=== PATIENT | male | born 1945 | race Caucasian/White ===

== ENCOUNTER 2023-09-16 13:08 | Emergency (ER) | payer MEDICARE, OTHER, SELFPAY ==
[2023-09-16 13:18] VITALS: BP 152/88; PULSE 70; TEMP 36.9; O2SAT 98; BMI 20.3
--- NOTE | 2023-09-16 13:32 | PC.NURSE ---
bumps to various areas to upper face. bumps are red in color and no drainage. pt denies these itching. reports them to hurt
--- NOTE | 2023-09-16 13:50 | ED_ITS ---
HPI - Skin/Abscess/Foreign Bdy General Chief complaint: Skin/Abscess/Foreign Body Stated complaint: FACIAL SWELLING Time Seen by Provider: 09/16/23 13:44 History of Present Illness HPI narrative: This patient is here with redness swelling and discomfort over the forehead nasal area medial canthus of his left eye and a little bit underneath his right eye as well. He does not know for sure but he thinks there might be some black ants in his house. He does not have any of these lesions on his arms chest abdomen or lower extremities. They itch they burn but they hurt a little bit when he touches the area. He has not had fever shakes or chills. Does not have any Neck or chest pain, no shortness of breath no other systemic symptoms. He is not a diabetic he is pretty healthy. He does not have a local doctor that he is seeing but he does have a doctor office in [place]. No severe headache. Does not have a history of MRSA. Does not have any lesions in his mouth or oral cavity. Related Data Home Medications ?Medication ?Instructions ?Recorded ?Confirmed No Known Home Medications 09/16/23 09/16/23 Allergies Allergy/AdvReac Type Severity Reaction Status Date / Time Penicillins Allergy Severe Verified 09/16/23 13:24 Exam Narrative Exam Narrative: Well-nourished very pleasant gentleman here with vital signs as noted slight elevation of his blood pressure. He is awake alert Elfrida x 3 normal cognition and mental status does not appear ill. Examining his facial area he does have slightly raised erythematous slightly tender areas in the forehead area the glabella is slightly tender to palpation with no purulent drainage or discharge. There is no vesicles. There is no gold crusty type lesions in the nasal area. He has lesions just underneath the right eye so I do not believe were dealing with shingles. The very eye examination is normal with no conjunctivitis. Extraocular muscles are normal. He has no light sensitivity and I do not believe he has any type of herpetic or viral infection of his eye. Constitutional Vital Signs, click to edit/add: Last Vital Signs Temp 98.5 F 09/16/23 13:18 Pulse 70 09/16/23 13:18 Resp 18 09/16/23 13:18 BP 152/88 H 09/16/23 13:18 Pulse Ox 98 09/16/23 13:18 O2 Del Method Room Air 09/16/23 13:18 Course Vital Signs Vital signs: Vital Signs Temperature 98.5 F 09/16/23 13:18 Pulse Rate 70 09/16/23 13:18 Respiratory Rate 18 09/16/23 13:18 Blood Pressure 152/88 H 09/16/23 13:18 Pulse Oximetry 98 09/16/23 13:18 Oxygen Delivery Method Room Air 09/16/23 13:18 Temperature 98.5 F 09/16/23 13:18 Pulse Rate 70 09/16/23 13:18 Respiratory Rate 18 09/16/23 13:18 Blood Pressure 152/88 H 09/16/23 13:18 Pulse Oximetry 98 09/16/23 13:18 Oxygen Delivery Method Room Air 09/16/23 13:18 MDM - Skin/Abscess/Foreign Bdy MDM Narrative Medical decision making narrative: Patient was several areas that are somewhat confluent in the forehead and nasal area near the medial canthus. Symptoms are most consistent with insect envenomation with possible secondary infection from itching these areas. This is not viral in etiology. He states he has possible allergies to penicillin. States he had a minor rash to penicillin when he was a child he is otherwise healthy. Discharge Plan Discharge Stand Alone Forms: Portal Instructions Chief Complaint: Skin/Abscess/Foreign Body Clinical Impression: Infection, face Patient Disposition: Home, Self-Care Time of Disposition Decision: 13:54 Prescriptions / Home Meds: No Action No Known Home Medications Print Language: Telugu Additional Instructions: Apply cold compresses with Epsom salt for symptomatic relief. Keflex for 7 days
== END 2023-09-16 14:31 | disposition home or self-care (01) ==
PROVIDERS: Emergency Provider Emergency Medicine Emergency Medical Services; PCP Family Medicine
DX: B99.9 Unspecified infectious disease (principal)
CPT/HCPCS: 99283

== ENCOUNTER 2024-01-16 11:13 | Emergency (ER) | payer MEDICARE, OTHER, SELFPAY ==
[2024-01-16 11:19] VITALS: BP 169/83; PULSE 72; TEMP 36.7; O2SAT 97; BMI 19.0
--- NOTE | 2024-01-16 11:44 | CT_ITS ---
[address] [address] Patient Name: SKYLER LYNN MRN: [id number] date: 1945 Sex: M Assigned Patient Location: ER Current Patient Location: Accession/Order Number: [id number] Exam Date: 01/16/2024 12:40 Report Date: 01/16/2024 13:17 At the request of: DORA MCKEON Procedure: CT abdomen pelvis w con EXAMINATION: CT abdomen pelvis w con HISTORY: constipation COMPARISON: No relevant comparison available. TECHNIQUE: Axial, Coronal, and Sagittal images were obtained without and/or with IV contrast as indicated by examination type. Dose reduction techniques were achieved by using automated exposure control and/or adjustment of mA and/or kV according to patient size and/or use of iterative reconstruction technique. FINDINGS: LUNG BASES: No visible pulmonary or pleural disease. LIVER: Multiple benign-appearing cysts within the liver. No enlargement, atrophy, suspicious density, or significant focal lesion. BILIARY: No dilatation or calcification. PANCREAS: No lesion, fluid collection, or abnormal duct dilatation. SPLEEN: No enlargement or focal lesion. ADRENALS: No mass or enlargement. KIDNEYS: A few tiny benign-appearing cysts bilaterally. Cortical calcification within left kidney suggestive of scarring. No appreciable mass or urinary tract calculi. BOWEL/MESENTERY: Large amount of stool throughout colon, greatest within the cecum and rectum. 7.2 cm diameter dense stool ball within rectal vault. No visible mass, obstruction, or bowel wall thickening. AORTA/VASCULAR: No aneurysm or dissection. RETROPERITONEUM: No mass or adenopathy. LYMPH NODES: No adenopathy. URINARY BLADDER: Markedly enlarged and extending well above the umbilicus, 22 x 16 x 11 cm in size. No appreciable stones or mass. PELVIC ORGANS: Moderately prominent prostate, 5.0 x 4.5 x 3.0 cm. ABDOMINAL WALL: No mass or hernia. BONES: Moderate to marked degenerative disc disease L3-4 and L4-5. No bony lesion or fracture. OTHER: Negative. CT/CT abdomen pelvis w con IMPRESSION: 1. Large amount of stool throughout the colon with a large 7.2 cm stool ball within rectal vault. 2. Markedly distended urinary bladder; 22 x 16 x 11 cm in size. No appreciable mass or stones. 3. Moderately prominent prostate which may be contributing to urinary retention. Electronically authenticated by: RANDEE HUNT Date: 01/16/2024 13:17
[2024-01-16 12:09] LABS: Basophils Percent Auto 0.3 % (0.2-2.0); Eosinophils Absolute Auto 0.1 10^3/uL (0.0-0.7); Eosinophils Percent Auto 1.5 % (0.9-7.0); Hematocrit 42.7 % (42.0-54.0); Hemoglobin 14.6 g/dL (14.0-18.0); Immature Granulocytes Abs Auto 0.01 10^3/uL (0.00-0.03); Immature Granulocytes Pct Auto 0.1 % (0.0-0.5); Lymphocytes Absolute Auto 1.6 10^3/uL (1.2-3.8); Lymphocytes Percent Auto 21.2 % (20.5-60.0); Mean Corpuscular HGB Conc 34.2 g/dL (29.9-35.2); Mean Corpuscular Hemoglobin 34.6 pg (25.9-34.0); Mean Corpuscular Volume 101.2 fL (80.0-94.0); Mean Platelet Volume 9.6 fL (9.5-13.5); Monocytes Absolute Auto 0.9 10^3/uL (0.3-0.8); Monocytes Percent Auto 11.5 % (1.7-12.0); Neutrophils Absolute Auto 4.9 10^3/uL (1.4-6.5); Neutrophils Percent Auto 65.4 % (43.0-75.0); Platelet Count 204 10^3/uL (150-450); Red Blood Count 4.22 10^6/uL (4.70-6.10); Red Cell Distribution Width 12.8 % (11.0-15.0); White Blood Count 7.4 10^3/uL (4.0-11.0)
[2024-01-16 12:31] LABS: Alanine Aminotransferase 22 U/L (16-63); Albumin Level 3.3 g/dL (3.4-5.0); Alkaline Phosphatase 79 U/L (46-116); Aspartate Amino Transferase 14 U/L (15-37); Bilirubin Total 0.6 mg/dL (0.2-1.0); Calcium 8.8 mg/dL (8.5-10.1); Carbon Dioxide 29.2 mmol/L (21.0-32.0); Chloride 104 mmol/L (98-107); Estimated GFR (African America >60 (>=60 mL/min/1.73m^2); Estimated GFR (Non-African Ame >60 (>=60 mL/min/1.73m^2); Globulin 3.4 g/dL; Glucose 105 mg/dL (74-106); Potassium 4.2 mmol/L (3.5-5.1); Sodium 140 mmol/L (136-145); Total Protein 6.7 g/dL (6.4-8.2)
[2024-01-16 14:35] LABS: Bilirubin Urine NEGATIVE (NEGATIVE); Blood Urine NEGATIVE (NEGATIVE); Clarity Urine CLEAR (CLEAR); Color Urine LT. YELLOW (YELLOW); Glucose Urine UA NEGATIVE (NEGATIVE); Ketones Urine NEGATIVE (NEGATIVE); Leukocyte Esterase Urine NEGATIVE (NEGATIVE); Nitrite Urine NEGATIVE (NEGATIVE); Protein Urine NEGATIVE (NEG/TRACE); Specific Gravity Urine 1.015 (1.005-1.025); Urobilinogen Urine 0.2 EU/dL (0.2-1.0)
[2024-01-16 14:36] LABS: Urine Microscopic Indicated NO
--- NOTE | 2024-01-16 15:11 | ED.GENADUL1 ---
HPI HPI - General Adult General Chief complaint: Abdominal Pain Stated complaint: BOWEL PROBLEMS Time Seen by Provider: 01/16/24 11:27 Source: patient Mode of arrival: walk-in Limitations: no limitations History of Present Illness HPI narrative: Patient presents to ED complaining of constipation. He said he has not had a bowel movement in at least 5 days but it may have been longer. He said he is getting some leaky stool but nothing substantial. He denies any vomiting. Denies any history of bowel surgeries or history of constipation in the past. He said he is just been having trouble trying to go. He reports normal urination. No fevers. Patient denies any flank pain or back pain. He denies any medicine use and states this does not really happen to him before. Related Data Home Medications ?Medication ?Instructions ?Recorded ?Confirmed No Known Home Medications 09/16/23 01/16/24 Allergies Allergy/AdvReac Type Severity Reaction Status Date / Time Penicillins Allergy Severe Rash Verified 01/16/24 11:19 Opioid HPI Opioid Management Most Recent Opioid Data: No Data to Display Review of Systems ROS Status of ROS 10 or more systems reviewed and unremarkable except as noted in history and below PFSH PFSH Social History Little interest or pleasure in doing things: not at all Feeling down, depressed, or hopeless: not at all Exam Narrative Exam Narrative: General: alert, no acute distress Cardiovascular: regular rate and rhythm, normal peripheral perfusion. Respiratory: Lungs CTA, respirations non labored. Extremities: no deformity, no trauma. Neurological: oriented x 4, LOC appropriate for age. Abdomen soft, mildly distended in the lower abdomen. No peritoneal signs no rebound no guarding. Rectal exam reveals impacted stool in the rectal vault Constitutional Vital Signs, click to edit/add: Last Vital Signs Temp 98.1 F 01/16/24 11:19 Pulse 72 01/16/24 11:19 Resp 18 01/16/24 11:19 BP 169/83 H 01/16/24 11:19 Pulse Ox 97 01/16/24 11:19 O2 Del Method Room Air 01/16/24 11:19 Course Vital Signs Vital signs: Vital Signs Temperature 98.1 F 01/16/24 11:19 Pulse Rate 72 01/16/24 11:19 Respiratory Rate 18 01/16/24 11:19 Blood Pressure 169/83 H 01/16/24 11:19 Pulse Oximetry 97 01/16/24 11:19 Oxygen Delivery Method Room Air 01/16/24 11:19 Temperature 98.1 F 01/16/24 11:19 Pulse Rate 72 01/16/24 11:19 Respiratory Rate 18 01/16/24 11:19 Blood Pressure 169/83 H 01/16/24 11:19 Pulse Oximetry 97 01/16/24 11:19 Oxygen Delivery Method Room Air 01/16/24 11:19 Medical Decision Making MDM Narrative Medical decision making narrative: Patient's labs are nonacute. Patient CT scan shows a large ball of stool in the rectal vault. Patient also has a very enlarged bladder. Patient has an enlarged prostate as well. Patient states he urinated after the CAT scan and he said it was a lot. We did a bladder scan which still showed at least 1500 in the bladder. Patient was counseled on the fact that we need to put a Marshall catheter in to decompress the bladder which also might help his bowels move. Marshall catheter was placed and 2200 mL of urine came out. I then did another rectal exam with manual disimpaction of the stool. I did get more stool out. Patient then was given an enema and had a large bowel movement after the enema. Patient feels better after the enema. He will keep the Marshall catheter in to keep the bladder decompressed and to get everything to calm down. Patient has an appointment tomorrow with the urologist for further management and care of the catheter and prostate. I will refer the patient to GI for management of the severe constipation and potential scope in the future. Patient is feeling much better and is comfortable with care plan for home. Differential Diagnosis Differential Diagnosis: Constipation, bowel obstruction, UTI, urinary retention, enlarged prostate Medical Records Medical records reviewed: Yes I reviewed the patient's medical records Lab Data Lab results reviewed: Yes I reviewed the patient's lab results Labs: Lab Results 01/16/24 01/16/24 Range/Units 12:00 14:00 WBC 7.4 (4.0-11.0) 10^3/uL RBC 4.22 L (4.70-6.10) 10^6/uL Hgb 14.6 (14.0-18.0) g/dL Hct 42.7 (42.0-54.0) % MCV 101.2 H (80.0-94.0) fL MCH 34.6 H (25.9-34.0) pg MCHC 34.2 (29.9-35.2) g/dL RDW 12.8 (11.0-15.0) % Plt Count 204 (150-450) 10^3/uL MPV 9.6 (9.5-13.5) fL Neut % (Auto) 65.4 (43.0-75.0) % Lymph % (Auto) 21.2 (20.5-60.0) % Hardeman % (Auto) 11.5 (1.7-12.0) % Eos % (Auto) 1.5 (0.9-7.0) % Baso % (Auto) 0.3 (0.2-2.0) % Neut # (Auto) 4.9 (1.4-6.5) 10^3/uL Lymph # (Auto) 1.6 (1.2-3.8) 10^3/uL Hardeman # (Auto) 0.9 H (0.3-0.8) 10^3/uL Eos # (Auto) 0.1 (0.0-0.7) 10^3/uL Baso # (Auto) 0.0 (0.0-0.1) 10^3/uL Abs Immat Gran (auto) 0.01 (0.00-0.03) 10^3/uL Imm/Tot Granulo (auto) 0.1 (0.0-0.5) % Sodium 140 (136-145) mmol/L Potassium 4.2 (3.5-5.1) mmol/L Chloride 104 (98-107) mmol/L Carbon Dioxide 29.2 (21.0-32.0) mmol/L Anion Gap 11.0 BUN 10.0 (7.0-18.0) mg/dL Creatinine 1.11 (0.70-1.30) mg/dL Est GFR ( Amer) >60 (>=60 mL/min/1.73m^2) Est GFR (Non-Af Amer) >60 (>=60 mL/min/1.73m^2) BUN/Creatinine Ratio 9.0 Glucose 105 (74-106) mg/dL Calcium 8.8 (8.5-10.1) mg/dL Total Bilirubin 0.6 (0.2-1.0) mg/dL AST 14 L (15-37) U/L ALT 22 (16-63) U/L Alkaline Phosphatase 79 (46-116) U/L Total Protein 6.7 (6.4-8.2) g/dL Albumin 3.3 L (3.4-5.0) g/dL Globulin 3.4 g/dL Albumin/Globulin Ratio 1.0 Urine Color Lt. yellow (YELLOW) Urine Clarity Clear (CLEAR) Urine pH 6.0 (5.0-9.0) Ur Specific [place] 1.015 (1.005-1.025) Urine Protein Negative (NEG/TRACE) mg/dL Urine Glucose (UA) Negative (NEGATIVE) mg/dL Urine Ketones Negative (NEGATIVE) mg/dL Urine Occult Blood Negative (NEGATIVE) Urine Nitrite Negative (NEGATIVE) Urine Bilirubin Negative (NEGATIVE) Urine Urobilinogen 0.2 (0.2-1.0) EU/dL Ur Leukocyte Esterase Negative (NEGATIVE) Imaging Data CT scan - abdomen: Radiologist's impression: ITS Impressions Abdomen/Pelvis CT 01/16/24 11:44 IMPRESSION: 1. Large amount of stool throughout the colon with a large 7.2 cm stool ball within rectal vault. 2. Markedly distended urinary bladder; 22 x 16 x 11 cm in size. No appreciable mass or stones. 3. Moderately prominent prostate which may be contributing to urinary retention. Electronically authenticated by: RANDEE HUNT Date: 01/16/2024 13:17 Discharge Plan Discharge Chief Complaint: Abdominal Pain Clinical Impression: Constipation, Acute urinary retention, Enlarged prostate Patient Disposition: Home, Self-Care Time of Disposition Decision: 15:10 Condition: Good Mode of Transportation: Private Vehicle Prescriptions / Home Meds: No Action No Known Home Medications Print Language: Occitan Instructions: Constipation (ED), Enlarged Prostate (BPH) (ED), Marshall Catheter Placement and Care (ED) Referrals: RANULFO WALLACE [Physician] - 1 week Chin Harley MD [Physician] - 01/17/24 12:40 pm SUZY THAKUR [Primary Care Provider] - 1 week Procedures ED Procedure Instructions Procedures Procedures: Manual disimpaction of stool x 2
[2024-01-16 15:28] VITALS: BP 154/79; PULSE 75; O2SAT 99
== END 2024-01-16 15:31 | disposition home or self-care (01) ==
PROVIDERS: Emergency Provider Emergency Medicine; PCP Family Medicine
DX: K59.00 Constipation, unspecified (principal); R33.9 Retention of urine, unspecified; N40.0 Benign prostatic hyperplasia without lower urinary tract symptoms
CPT/HCPCS: 36415; 51702; 74177; 80053; 81003; 85025; 99285; Q9967

== ENCOUNTER 2024-03-07 09:06 | Emergency (ER) | payer MEDICARE, OTHER, SELFPAY ==
[2024-03-07 09:15] VITALS: BP 162/89; PULSE 86; TEMP 37; O2SAT 99; BMI 19.0
--- OUTSIDE RECORDS SUMMARY | 2024-03-07 09:28 | XMS_ITS | CCD ---
Author Organization [facility] CliniSymo Care Team Providers Care Ocean Export Agent Name Role Phone Scott Waller Primary Care Physician MD Scott Waller Attending Unavailable MD Scott Waller Admitting Unavailable MD Scott Waller Attending Unavailable Scott Waller Admitting Unavailable Scott Waller Attending Unavailable Scott Waller Attending Unavailable MD Scott Waller Admitting Unavailable MD Scott Waller Attending Unavailable MD Scott Waller Attending Unavailable SAUNDRA ALLEN Attending Unavailable Scott Waller Referring Unavailable Scott Waller Attending Unavailable Scott Waller Admitting Unavailable Scott Waller Attending Unavailable Scott Waller Attending Unavailable Scott aWller Admitting Unavailable Scott Waller Attending Unavailable Scott aWller Attending Unavailable Scott Waller Attending Unavailable Scott Waller Attending Unavailable STEVEN ALLEN Attending Unavailab STEVEN Mandel Attending Unavailab Kelly Harris Attending Unavailable Kelly Loco Referring Unavailable STEVEN ALLEN Attending Unavailab Kelly Harris Attending Unavailable Kelly Loco. Attending Unavailable Kelly Loco Referring Unavailable STEVEN ALLEN Attending Unavailab Kelly Harris Attending Unavailable Kelly Loco Referring Unavailable Kelly Loco Admitting Unavailable STEVEN ALLEN Admitting Unavailab STEVEN Mandel Attending Unavailab le Allergies Allergy Classification Reported Allergen(s) Allergy Type Date of Onset Reaction(s) Facility (17 sources) Penicillin; Translations: [penicillin] Drug Allergy Eruption of skin (disorder) [facility] [place] (6 sources) No Known Medication Allergies; Translations: [No Known Medication Allergies] Propensity to adverse reactions (disorder) [facility] Repository Medications Current Medications Medication Drug Class(es) Dates Sig (Normalized) Sig (Original) cephalexin 500 mg oral capsule (2 sources) Cephalosporin Antibacterial Start: 11-02-2023 take 1 capsule by mouth every twelve hours Keflex 500 mg Cap 500 mg = 1 cap(s), Oral, q12hr, # 20 cap(s), Refills(s) 0, Pharmacy: [facility]/pharmacy #[id number], 183, cm, 10/18/23 10:49:00 EDT, Height/Length Dosing, 65.3, kg, 10/18/23 10:49:00 EDT, Weight Dosing Start Date: 11/02/23 Status: Ordered nitrofurantoin, macrocrystals 25 mg / nitrofurantoin, monohydrate 75 mg oral capsule (2 sources) Nitrofuran Antibacterial Start: 02-19-2024 End: 02-26-2024 take 1 capsule by mouth twice daily Macrobid 100 mg Cap 100 mg = 1 cap(s), Oral, BID, X 7 day(s), # 14 cap(s), Refills(s) 0, Pharmacy: [facility]/pharmacy #[id number], 184, cm, 01/29/24 14:50:00 EST, Height/Length Dosing, 61.6, kg, 01/29/24 14:50:00 EST, Weight Dosing Start Date: 02/19/24 Stop Date: 02/26/24 Status: Ordered sulfamethoxazole 800 mg / trimethoprim 160 mg oral tablet (3 sources) Dihydrofolate Reductase Inhibitor Antibacterial, Sulfonamide Antimicrobial Start: 10-18-2023 End: 11-01-2023 Bactrim D.S. 800 mg-160 mg Tab 1 tab(s), Oral, BID for 7 day(s), 14 tab(s), Refill(s) 0, [facility]/pharmacy #[id number], 183, cm, 10/18/23 10:49:00 EDT, Height/Length Dosing, 65.3, kg, 10/18/23 10:49:00 EDT, Weight Dosing Start Date: 10/25/23 Stop Date: 11/01/23 Status: Ordered tamsulosin hydrochloride 0.4 mg oral capsule (6 sources) alpha-Adrenergic Arline Start: 01-17-2024 take 1 capsule by mouth once daily Flomax 0.4 mg Cap 0.4 mg = 1 cap(s), Oral, Daily, # 30 cap(s), Refills(s) 11, Pharmacy: [facility]/pharmacy #[id number], 184, cm, 01/17/24 12:55:00 EDT, Height/Length Dosing, 66, kg, 01/17/24 12:55:00 EDT, Weight Dosing Start Date: 01/17/24 Status: Ordered Problems Problem Classification Problem Date Documented Da te Episodic/Chronic Genitourinary symptoms and ill-defined conditions (9 sources) Retention of urine; Translations: [Other retention of urine] Onset: 01-17-2024 Episodic Hyperplasia of prostate (8 sources) Benign prostatic hypertrophy with outflow obstruction; Translations: [Benign prostatic hyperplasia with lower urinary tract symptoms] Onset: 01-17-2024 Chronic Other diseases of kidney and ureters (2 sources) Urinary tract obstruction; Translations: [Other obstructive and reflux uropathy] Onset: 01-17-2024 Episodic Other gastrointestinal disorders (1 source) Other constipation; Translations: [Other constipation] Onset: 01-17-2024 Episodic Other gastrointestinal disorders (6 sources) Chronic constipation 01-17-2024 Episodic Other nutritional; endocrine; and metabolic disorders (4 sources) Body mass index less than 20 01-29-2024 Episodic Residual codes; unclassified (6 sources) Tobacco user 01-17-2024 Episodic Unclassified (11 sources) Seborrheic keratosis 09-18-2023 Urinary tract infections (18 sources) Urinary tract infectious disease; Translations: [Urinary tract infection, site not specified] Onset: 01-17-2024 10-18-2023 Episodic Viral infection (11 sources) Herpes zoster 09-18-2023 Episodic Results Test Name Value Interpretation Reference Range Facility Ambulatory Visit Summaryon 1 05-06-2023 Ambulatory Visit Summary Ambulatory Visit Summary ADONIS LYNN :1945 Visit Date:03/05/2024 Ambulatory Visit Instructions Your Diagnosis BPH with obstruction/lower urinary tract symptoms Acute urinary retention Prostate cancer screening Your Care Team Attending Physician - Claudy FLOOD, Kelly Garsia Primary Care Physician - Scott Waller MD This Is Your Medications List doxycycline (doxycycline hyclate 100 mg Tab) tamsulosin (Flomax 0.4 mg Cap) Procedures Performed Tonsillectomy. Discharge Vitals Heart Rate (Peripheral) 64 Blood Pressure 138/78 Height 184 cm Height 72 in Weight 65.5 kg Weight 144.403 lb BMI 19.35 What to do next Scheduled Follow-Up Appointments Sunday 10:15 AM EST With: Kelly Loco MD Where: [facility] [address] [place] [address] 2024 2:30 PM EST With: Where: Family Medicine [address] [address]- You Need to Schedule the Following Appointments Follow Up with Kelly Loco MD, URL, URO When: Comments: when ready to schedule procedure Where: Medications What How Much When Instructions New doxycycline (doxycycline hyclate 100 mg Tab) 1 Tablets By Mouth 2 times a day Unchanged tamsulosin (Flomax 0.4 mg Cap) 1 Capsules By Mouth Every day Allergies penicillin (Rash) Problems Ongoing - Any problem that you are currently receiving treatment for. Acute urinary retention BMI less than 19,adult BPH with obstruction/lower urinary tract symptoms Chronic constipation Prostate cancer screening Recurrent UTI Shingles SK (seborrheic keratosis) Urinary tract infection Patient Survey You may receive a survey via text or e-mail asking about your office visit. Please share your experience with us by completing your survey. We appreciate your feedback and thank you for choosing us for your care. Education Materials Prostate Cancer Screening Prostate cancer screening is testing that is done to check for the presence of prostate cancer in men. The prostate gland is a walnut-sized gland that is located below the bladder and in front of the rectum in males. The function of the prostate is to add fluid to semen during ejaculation. Prostate cancer is one of the most common types of cancer in men. Who should have prostate cancer screening? Screening recommendations vary based on age and other risk factors, as well as between the professional organizations who make the recommendations. In general, screening is recommended if: ??? You are age 50 to 70 and have an average risk for prostate cancer. You should talk with your health care provider about your need for screening and how often screening should be done. Because most prostate cancers are slow growing and will not cause , screening in this age group is generally reserved for men who have a 10- to 15-year life expectancy. ??? You are younger than age 50, and you have these risk factors: ? Having a father, brother, or uncle who has been diagnosed with prostate cancer. The risk is higher if your family member's cancer occurred at an early age or if you have multiple family members with prostate cancer at an early age. ? Being a male who is Black or is of [place] or sub-Saharan descent. In general, screening is not recommended if: ??? You are younger than age 40. ??? You are between the ages of 40 and 49 and you have no risk factors. ??? You are 70 years of age or older. At this age, the risks that screening can cause are greater than the benefits that it may provide. If you are at high risk for prostate cancer, your health care provider may recommend that you have screenings more often or that you start screening at a younger age. How is screening for prostate cancer done? The recommended prostate cancer screening test is a blood test called the prostate-specific antigen (PSA) test. PSA is a protein that is made in the prostate. As you age, your prostate naturally produces more PSA. Abnormally high PSA levels may be caused by: ??? Prostate cancer. ??? An enlarged prostate that is not caused by cancer (benign prostatic hyperplasia, or BPH). This condition is very common in older men. ??? A prostate gland infection (prostatitis) or urinary tract infection. ??? Certain medicines such as male hormones (like testosterone) or other medicines that raise testosterone levels. A rectal exam may be done as part of prostate cancer screening to help provide information about the size of your prostate gland. When a rectal exam is performed, it should be done after the PSA level is drawn to avoid any effect on the results. Depending on the PSA results, you may need more tests, such as: ??? A physical exam to check the size of your prostate gland, if not done (more content not included)... Normal [facility] Urology Office/Clinic Noteon 12-05-2024 Urology Office/Clinic Note Urology Office/Clinic Note Chief Complaint PVR after void trial HPI Staff Pt here for PVR after brown catheter removal earlier today. Pt states trying to void after removal has been difficult, & that he has not been voiding a very large amount. States he does not feel the urge to urinate either. After completion of bladder scan today, pt said the small pressure on his stomach gave him the feeling of needing to urinate, however was only able to get tiny amount out. PVR-997mL Review of Systems PHQ Score Initial Depression Screen Score: 0 SCORE no fever, chills, malaise, myalgia. no rash/lesions. no chest pain, palpitations, or SOB. no abdominal pain, nausea, vomiting. no unilateral calf swelling, redness, pain Physical Exam Vitals & Measurements HT: 72 in HT: 184 cm WT: 66 kg WT: 145.2 lb BMI: 19.49 General: nontoxic, NAD Mouth: moist mucosa Lungs: normal respiratory effort Cardio: regular rate, good distal perfusion Abdomen: +suprapubic distention. no CVA tenderness Neurologic: Grossly normal Skin: No rashes or suspicious lesions Assessment/Plan 1. Acute urinary retention (R33.8: Other retention of urine) Failed void trial. Discussed learn CIC vs replace indwelling cath. Pt prefers the latter. Brown placed IO today. Will remain in place until cysto. Pt tolerating the Flomax without bothersome side effects. Will continue this. Pt inquired about adding Finasteride. Explained this takes 3-6mos to take effect and I expect we will recommend procedural intervention before that. Pt says this makes sense. Encouraged continued bowel management. Message already in to Emma about scheduling cysto. Will check w KML if she would like Uros added. Ordered: lidocaine topical, 6 mL, Gel-Юлия, Topical, Once, Stop date 01/22/24 15:46:00 EDT, Routine, Start date 01/22/24 15:46:00 EDT 66922 Measure Post Void residual urine and/or bladder capacity by US- non-imaging E&M of Est. Patient Moderate 30-39 Min 37009 Insertion of temp indwelling bladder cath (brown) simple 12806 Follow-up With When Contact Information [facility] [address] [place] [address] [facility] (1) Additional Instructions: our teacher aide clerical will be contacting you for follow-up Patient Education Acute Urinary Retention, Male Problem List/Past Medical History Ongoing Acute urinary retention BPH with obstruction/lower urinary tract symptoms Chronic constipation Recurrent UTI Shingles SK (seborrheic keratosis) Urinary tract infection Historical No qualifying data Procedure/Surgical History Tonsillectomy. Medications Flomax 0.4 mg Cap, 0.4 mg= 1 cap(s), Oral, Daily, 11 refills lidocaine Top 2% Gel w/Appl 6 mL, 6 mL, Topical, Once Allergies penicillin (Rash) Social History Tobacco 5-9 cigarettes (between 1/4 to 1/2 pack)/day in last 30 days Tobacco Use:. Never Smokeless Tobacco Use:. Cigarettes, 01/22/2024 Family History Colon cancer stage 1: Mother. Patient is cathing indefinitely, due to urinary retention, with a coude catheter, 4 times a day, every 4 to 6 hours. Patient is unable to cath with a straight tip catheter. Normal [facility] Comment on above: Result Comment: Elec tronically Signed By: Lor Early PA-C\.br\Date and Time Signed: 02/28/24 12:13 EST\.br\Electronically Co-Signed By: SAUNDRA ALLEN PA-C\.br\Date and Time Co-Signed: 02/28/24 16:38 EST C Urineon 02-21-2024 Bacteria identified Cx Nom (U) Microbiology PROCEDURE: Urine Culture [R1] SOURCE: U Cath BODY SITE: COLLECTED DATE/TIME: 02/19/2024 12:01 EST RECEIVED DATE/TIME: 02/19/2024 17:24 EST START DATE/TIME: 02/19/2024 17:25 EST FREE TEXT SOURCE: SAUNDRA ALLEN PA-C, PA-C, JENNIFER E FINAL REPORTS Final Report [] Verified Date/Time: 02/21/2024 10:02 EST 60,000 cfu/ml Enterobacter cloacae SUSCEPTIBILITY RESULTS __ LEGEND: S=Susceptible, N/R=Not Reported, Blank=Data not available, or drug not advisable or tested, I=Intermediate, ESBL=Extended spectrum beta-lactamase, R=Resistant, TFG=Thymidine-dependen t strain, JAYLEN=Beta-lactamase positive, PETERSON=mcg/m;(mg/L), S*=Predicted susceptible interp, R*=Predicted resistant interp Entclo Antibiotic PETERSON Dilutn PETERSON Interp Ampicillin >16 R Ampicillin/ <=8/4 R* Sulbactam Aztreonam <=4 S Cefazolin >16 R Cefepime <=2 S Ceftazidime <=1 S Ceftazidime/ <=8 S Avibactam Ceftriaxone <=1 S Cefuroxime 16 R* Ciprofloxacin <=0.25 S Ertapenem <=0.5 S Gentamicin <=2 S Levofloxacin <=0.5 S Meropenem <=1 S Nitrofurantoin >64 R Piperacillin/ <=8 S Tazobactam Tetracycline <=4 S Tobramycin <=2 S Trimethoprim/ <=2/38 S Sulfa Performing Locations R1: This test was performed at: [facility], [address] [place] [address], [address]- , , [facility] Comment on above: Performed By: #### 2 [id number] #### [facility] [address] [place] [id number] Ambulatory Visit Summaryon 1 04-13-2023 Ambulatory Visit Summary Ambulatory Visit Summary ADONIS LYNN :1945 Visit Date:02/12/2024 Ambulatory Visit Instructions Your Care Team Attending Physician - Kelly Loco MD Primary Care Physician - Sridhar FLOOD, Scott Robertson Referring Physician - Kelly Loco MD This Is Your Medications List tamsulosin (Flomax 0.4 mg Cap) Procedures Performed Tonsillectomy. What to do next Scheduled Follow-Up Appointments Sunday 11:00 AM EST With: Kelly Loco MD Where: [facility] [address] [address]- Sunday 10:15 AM EST With: Kelly Loco MD Where: [facility] [address] [address] 2024 2:30 PM EST With: Where: Family Medicine [address] [address]- Medications What How Much When Instructions Unchanged tamsulosin (Flomax 0.4 mg Cap) 1 Capsules By Mouth Every day Allergies penicillin (Rash) Problems Ongoing - Any problem that you are currently receiving treatment for. Acute urinary retention BMI less than 19,adult BPH with obstruction/lower urinary tract symptoms Chronic constipation Recurrent UTI Shingles SK (seborrheic keratosis) Urinary tract infection Patient Survey You may receive a survey via text or e-mail asking about your office visit. Please share your experience with us by completing your survey. We appreciate your feedback and thank you for choosing us for your care. Normal [facility] Inpatient Patient Summaryon 02-11-2024 Inpatient Patient Summary Inpatient Patient Summary [address] [address] Clinical Summary Person Information Name: ADONIS LYNN Age: 78 Years : 1945 Sex: Male PCP: Scott Waller MD Marital Status: Race: White Ethnicity: Non- or Language: Nepalese Visit Id: Visit Reason: ACUTE URINARY RETENTION Speciality: Acuity: Enc Type: Outpatient Med Service: Surgery Arrival: 02/11/2024 09:37:35 Discharge: Dispo Type: Address: [address] [place] [id number] Provider Notes: Diagnosis: Acute urinary retention; BPH with obstruction/lower urinary tract symptoms; Other obstructive and reflux uropathy Problems Active BMI less than 19,adult Recurrent UTI Chronic constipation BPH with obstruction/lower urinary tract symptoms Acute urinary retention Urinary tract infection SK (seborrheic keratosis) Shingles Smoking Status: Functional Status: Sensory Deficits: History of Falls: Mobility Assistance Prior to Admission: ADLs: Current Level of Assistance for Self-Care/Mobility: Cognitive Status: Allergies penicillin (Rash) Laboratory or Other Results This Visit (last charted value for your 02/11/2024 visit) No Laboratory or Other Results This Visit Measurements: Height: Weight: Blood Pressure: Not Valued / Not Valued BMI: Procedures No Procedures Documented Immunizations No Immunizations Documented This Visit Final Med List: tamsulosin (Flomax 0.4 mg Cap) 1 Capsules By Mouth every day. Refills: 11. Care Team Members: Attending Physician: Kelly Loco MD Consulting Physician: Referring Physician: Kelly Loco MD Follow up: With: Address: When: Kelly Loco Comments: Office to schedule follow up 1): Nursing visit for CIC teaching, 2) Follow up with Dr. Loco to discuss outlet procedure Type Location Start [facility] URO Nurse Visit [facility] EU [place] 02/12/2024 2:30 PM 02/12/2024 2:45 PM Confirmed Medicare Wellness Subsequent [facility] [place] 01/29/2025 2:30 PM 01/29/2025 3:30 PM Confirmed Patient Education Information: EU - Cystoscopy Discharge Instructions (CUSTOM) [facility] Main OR Intraoperative Recor don 02-11-2024 Main OR Intraoperative Record Main OR Intraoperative Record IntraOp Document Type FTURO Summary Primary Physician: Kelly Loco MD Finalized Date/Time: 02/11/24 12:14:40 Pt. Name: ADONIS LYNN /Sex: 1945 Male Med Rec #: [id number] Physician: Kelly Loco MD Financial #: [id number] Pt. Type: O Room/Bed: / Admit/Disch: 02/11/24 09:37:35 - Institution: Case Times FTURO Entry 1 Patient Times In Room 02/11/24 11:52:00 Out Room 02/11/24 12:14:00 Procedure Times Start 02/11/24 11:57:00 Stop 02/11/24 12:05:00 Anesthesia Times Last Modified By: Jo-Ann Chavis 02/11/24 12:14:34 Case Attendance FTURO Entry 1 Entry 2 Entry 3 Case Attendee Kelly Loco MD, Kelsie E Troike, Kendall R Role Performed Surgeon - Primary Orthopaedic General - Primary Scrub - Primary Time In 02/11/24 11:52:00 02/11/24 11:52:00 02/11/24 11:52:00 Time Out 02/11/24 12:14:00 02/11/24 12:14:00 02/11/24 12:14:00 Procedure CYSTOSCOPY LOCAL(.) CYSTOSCOPY LOCAL(.) CYSTOSCOPY LOCAL(.) Comments Last Modified By: Jo-Ann Chavis Kelsie E Burgderfer, Kelsie E 02/11/24 12:14:35 02/11/24 12:14:35 02/11/24 12:14:35 Surgical Procedures FTURO Entry 1 Procedure Description Procedure CYSTOSCOPY LOCAL Modifiers . Surgeon Description CYSTOSCOPY LOCAL Primary Procedure Yes Primary Surgeon Kelly Loco MD Start 02/11/24 11:57:00 Stop 02/11/24 12:05:00 Anesthesia Type Local Surgical Service Urology Wound Class 2 - Clean-Contaminated Last Modified By: Jo-Ann Chavis 02/11/24 12:05:57 General Case Data FTURO Pre-Care Text: Classifies surgical wound, implements aseptic technique, initiates traffic control Entry 1 Case Information OR URO 1 FT Case Level None Wound Class 2 - Clean-Contaminated Specialty Urology Preop Diagnosis ACUTE URINARY RETENTION Postop Same As Preop Yes Postop Diagnosis ACUTE URINARY RETENTION Outcomes Met? Yes Last Modified By: Jo-Ann Chavis 02/11/24 11:53:49 Post-Care Text: The patient is free from signs and symptoms of infection EU IntraOp - FTURO Pre-Care Text: Implements protective measures prior to operative or invasive procedure, confirms identity before the operative or invasive procedure, verifies operative procedure, surgical site, and laterality Entry 1 EU Perioperative Protocols Procedure(s) CYSTOSCOPY LOCAL(.) Patient Identity Birthday, ID Band Verified (select at Check, Patient least 2): Participation Consents / H and P H&P, Surgery/Procedure Operative Site N/A Verified Consent Marking Verified Surgical Site Yes Laterality Verified n/a Verified Procedure Verified Yes Correct Patient Yes Position Verified Availability Equipment, Medication Time Out Kelly Loco MD, Verified (If Participants Jo-Ann Chavis, Applicable) Benson Barahona Time Out Complete 02/11/24 11:56:00 Allergies Reviewed? Yes Allergies Reviewed Self/Patient With Body Position Supine Prep Area PENIS Prep Agents Betasept Skin. Condition Unable to Visualize Description N/A Additional None Specimens Comment N/A Specimens Collected Vitals - EU Blood Pressure 135/75 Pulse 83 bpm Respirations 18 br/min SPO2 97 % EBL 0 I&O - EU Total Intake 0 mL Total Output 0 mL Outcomes Met? Yes Last Modified By: Jo-Ann Chavis 02/11/24 11:56:37 Post-Care Text: The patient is free from signs and symptoms of injury caused by extraneous objects Sign Out FTURO Entry 1 Before Patient Leaves OR Nurse verbally Yes Nurse verbally n/a confirms with the confirms with the team the name of team that the procedure(s) instrument, sponge, recorded and needle counts are correct (or N/A) Nurse verbally n/a Nurse verbally Yes confirms with the confirms with the team how the team whether there specimen is labeled are any equipment (including patient problems to be name), if applicable addressed Sign Out Complete 02/11/24 12:05:00 Last Modified By: Jo-Ann Chavis 02/11/24 12:05:56 Case Comments Finalized By: Jo-Ann Chavis Document Signatures Signed By: Jo-Ann Chavis 02/11/24 12:14 Jo-Ann Chavis 02/11/24 12:14 [facility] Main OR Preoperative Recordo n 02-11-2024 Main OR Preoperative Record Main OR Preoperative Record Holding Area Document Type FTURO Summary Primary Physician: Kelly Loco MD Finalized Date/Time: 02/11/24 11:53:39 Pt. Name: LEAHADONIS/Sex: 1945 Male Med Rec #: [id number] Physician: Kelyl Loco MD Financial #: [id number] Pt. Type: O Room/Bed: / Admit/Disch: 02/11/24 09:37:35 - Institution: Case Times Holding FTURO Pre-Care Text: Verifies consent for planned procedure, identifies individual values and wishes concerning care, includes family members in perioperative teaching Secures patient's records' belongings, and valuables, maintains patient's dignity and privacy, and maintains patient confidentiality Entry 1 In Holding 02/11/24 11:17:00 Outcomes Met? Yes Last Modified By: Penelope Krishna LPN 02/11/24 11:21:47 Post-Care Text: The patient participates in decisions affecting his or her perioperative plan of care The patient's right to privacy is maintained Surgery Checklist FTURO Entry 1 Patient Birthday, ID Band Procedure Surgical Consent, With Identification: Check, Patient Verification: Patient Participation NPO after Midnight: n/a Personal Items: Dentures Limitations: up ad gracie Complaints of Pain: No Skin Integrity Intact, [place], Warm, & Dry Vitals - EU Blood Pressure 135/75 Pulse 83 bpm Respirations 18 br/min SPO2 97 % Additional None RN Reviewed Yes Specimens Collected Last Modified By: Jo-Ann Chavis 02/11/24 11:53:25 Finalized By: Jo-Ann Chavis Document Signatures Signed By: Penelope Krishna LPN 02/11/24 11:25 Penelope Krishna LPN 02/11/24 11:25 Jo-Ann Chavis 02/11/24 11:53 Jo-Ann Chavis 02/11/24 11:53 [facility] Operative Reporton 4 Operative Report Operative Report Patient: ADONIS LYNN Age: 78 years Sex: Male : 1945 Associated Diagnoses: None Author: Kelly Loco MD Procedure Operative Information Details: Date/ Time: 02/11/2024 12:23:00. Pre-Op Dx: BPH with obstruction/lower urinary tract symptoms ([id number] N40.1, Discharge, Medical), Acute urinary retention (VIO82-XL R33.8, Discharge, Medical). Post-Op Dx: Same. Anesthesia Type: Local. Procedure: Local Cystoscopy. Complications: None. Risks/Benefits/Informe d Consent: Surgical risks, benefits, details of the procedure have been explained to the patient, Full informed consent has been obtained. Intraoperative Information Prepped: Patient is brought back to the endoscopy suite, Patient is placed in supine position, Patient prepped in the usual fashion with Betadine solution (Hibiclens), 2% Xylocaine Jelly is placed per Urethra, After waiting several minutes the Cystoscope is introduced. The Urethra is: Normal. The Prostatic Urethra is: Obstructed, Mod to severe bilobar lateral prostateomegaly. No intravesical median lobe. The Bladder is: Normal, Trabeculated Mild (1), No bladder tumors, lesions, stones or foreign bodies. , Capacious. The ureteral orifices: Show efflux of clear urine. Devices Implanted: None. Removal: Cystoscope is removed, The patient tolerated it well. 16Fr coude catheter inserted, 15 cc in balloon. Postoperative Information Discharge: Follow up arranged, Nursing visit for teach/train CIC. Follow up in the upcoming weeks to discuss outlet procedure, candidate for Urolift, Rezum or TURP (pt not a fan of Rezum) Discussed UDS findings- 2L capacity, significantly delayed sensation 560 ml, unable to void. Discussed hypotonic bladder and risk of continued retention despite outlet procedure. Needs bladder retraining Cont Tamsulosin, bowel reigmen, timed voids with CIC. [facility] Comment on above: Result Comment: Elec tronically Signed By: Kelly Loco MD\.br\Date and Time Signed: 02/11/24 12:35 EST Outpatient Surgery Discharge Instructionon 02-11-2024 Outpatient Surgery Discharge Instruction Outpatient Surgery Discharge Instruction [place] [id number] Patient Discharge Instructions PERSON INFORMATION Name: ADONIS LYNN Date of : 1945 Current Date: 02/11/2024 12:21:34 PHYSICIANS Admitting Physician: Kelly Loco MD Comment: Discharge Diagnosis: Acute urinary retention; BPH with obstruction/lower urinary tract symptoms; Other obstructive and reflux uropathy ADONIS LYNN has been given the following list of follow-up instructions, prescriptions, and patient education materials: IF UNABLE TO CONTACT YOUR PHYSICIAN AND YOU FEEL IT IS AN EMERGENCY, GO TO THE NEAREST EMERGENCY ROOM OR CALL 911 Follow up: With: Address: When: Kelly Loco Comments: Office to schedule follow up 1): Nursing visit for CIC teaching, 2) Follow up with Dr. Loco to discuss outlet procedure Type Location Start [facility] URO Nurse Visit [facility] [place] 02/12/2024 2:30 PM 02/12/2024 2:45 PM Confirmed Medicare Wellness Subsequent [facility] 01/29/2025 2:30 PM 01/29/2025 3:30 PM Confirmed Comment: PATIENT EDUCATION INFORMATION Instructions: Cystoscopy ??? Voiding after the procedure: there may be some pain, burning, urgency, frequency and blood tinged urine following the procedure. These symptoms usually resolve within 2-5 days. Drink the amount of fluid it takes to keep the urine pink to yellow or clear in color. Drinking enough water and fluids will help to ease any discomfort after your procedure. ??? If you are having problems that seem out of the ordinary, please call. ??? If unable to contact your physician and you feel it is an emergency, go to the nearest emergency room or call 911 ??? Diet ??? you may resume your normal diet. ??? Activity ??? you may resume your normal activities ??? Call if you have a fever over 100 degrees. I, ADONIS LYNN, have received the attached patient education materials/instructions and have verbalized understanding: May we do a follow up call? Yes No I was present when discharge instructions were given Patient Signature Date Clinican/Nurse Signature ___ Date You may receive a survey from [employer] asking you to rate your care experience. Your feedback is important and will help us understand what we do well and how we can improve the quality of care we provide to you, your loved ones and our community. It???s an honor to serve you. Thank you for choosing [facility] Ambulatory Visit Summaryon 04-05-2023 Ambulatory Visit Summary Ambulatory Visit Summary ADONIS LYNN :1945 Visit Date:01/29/2024 Ambulatory Visit Instructions Your Diagnosis Encounter for initial annual wellness visit in Medicare patient Screening for ischemic heart disease Immunization declined BPH with obstruction/lower urinary tract symptoms Current every day smoker Your Care Team Attending Physician - Scott Waller MD Primary Care Physician - Scott Waller MD This Is Your Medications List tamsulosin (Flomax 0.4 mg Cap) Procedures Performed Tonsillectomy. Discharge Vitals Temperature (Temporal Artery) 37.0 ???C Heart Rate (Peripheral) 76 Respiratory Rate 14 Blood Pressure 130/60 Height 184 cm Height 72 in Weight 61.6 kg Weight 135.52 lb BMI 18.19 What to do next Scheduled Follow-Up Appointments Sunday 2:30 PM EST Where: [facility] Sunday 10:00 AM EST Where: [facility] Sunday 11:30 AM EST Where: [facility] 2024 2:30 PM EST Where: [address] [address]- You Need to Complete the Following Lipid Panel, Blood, Routine collect, 01/29/24, Order for future visit, Lab Collect, Screening for ischemic heart disease, Required & Missing, Print Label By Order Location Medications What How Much When Instructions Unchanged tamsulosin (Flomax 0.4 mg Cap) 1 Capsules By Mouth Every day Medications and Immunizations Administered Not Given influenza virus vaccine, inactivated, Temporary contraindication - reschedule, Patient having other health issues and would like to post pone immunization. Allergies penicillin (Rash) Problems Ongoing - Any problem that you are currently receiving treatment for. Acute urinary retention BMI less than 19,adult BPH with obstruction/lower urinary tract symptoms Chronic constipation Recurrent UTI Shingles SK (seborrheic keratosis) Urinary tract infection Patient Survey You may receive a survey via text or e-mail asking about your office visit. Please share your experience with us by completing your survey. We appreciate your feedback and thank you for choosing us for your care. Education Materials Health Risks of Smoking Smoking tobacco is very bad for your health. Tobacco smoke contains many toxic chemicals that can damage every part of your body. Secondhand smoke can be harmful to those around you. Tobacco or nicotine use can cause many long-term (chronic) diseases. Smoking is difficult to quit because a chemical in tobacco, called nicotine, causes addiction or dependence. When you smoke and inhale, nicotine is absorbed quickly into your bloodstream through your lungs. Both inhaled and non-inhaled nicotine may be addictive. How can quitting affect me? There are health benefits of quitting smoking. Some benefits happen right away and others take time. Benefits may include: ??? Blood flow, blood pressure, heart rate, and lung capacity may begin to improve. However, any lung damage that has already occurred cannot be repaired. ??? Respiratory symptoms from smoking, such as nasal congestion and cough, may improve over time. ??? Your risk of heart disease, stroke, and cancer is reduced. ??? The overall quality of your health may improve. ??? You may save money, as you will not spend money on tobacco products and may spend less money on smoking-related health issues. What can increase my risk? Smoking harms nearly every organ in the body. People who smoke tobacco have a shorter life expectancy and an increased risk of many serious medical problems. These include: ??? More respiratory infections, such as colds and pneumonia. ??? Cancer. ??? Heart disease. ??? Stroke. ??? Chronic respiratory diseases. ??? Delayed wound healing and increased risk of complications during surgery. ??? Problems with reproduction, , and childbirth, such as infertility, early (premature) births, stillbirths, and defects. Secondhand smoke exposure to children increases the risk of: ??? Sudden infant syndrome (SIDS). ??? Infections in the nose, throat, or airways (respiratory infections). ??? Chronic respiratory symptoms. What actions can I take to quit? Smoking is an addiction that affects both your body and your mind, and long-time habits can be hard to change. Your health care provider can recommend: ??? Nicotine replacement products, such as patches, gum, and nasal sprays. Use these products only as directed. Do not replace cigarette smoking with electronic cigarettes, which are commonly called e-cigarettes. The safety of e-cigarettes is not known, and some may contain harmful chemicals. ??? Programs and community resources, which (more content not included)... [facility] Family Medicine Office/Clini c Noteon 02-04-2024 Family Medicine Office/Clinic Note Family Medicine Office/Clinic Note Chief Complaint Initial Medicare Wellness History of Present Illness Covid-19, MERS, Ebola Screen *Contact With Person With Highly Contagious Disease Like Ebola/MERS/COVID-19 AND Have One or More of the Symptoms Below : No *Travel to a Country With Wide-Spread Ebola/MERS/COVID-19 in the Past 21 Days AND Have One or More of the Symptoms Below : No Patient Reported Covid-19 Testing : No *Verify Droplet, Contact Precautions for Ebola (Reference for CDC) : N/A *Verify Airborne, Droplet Precautions for MERS/COVID-19 : N/A Chelo Olivia - 01/29/2024 14:48 EST Medicare/Medicaid Summary Systolic Blood Pressure : 130 mmHg Diastolic Blood Pressure : 60 mmHg Blood Pressure Location : Left arm Blood Pressure Position : Sitting O2 Sat Resting/Exertion Alpha : Resting Peripheral Pulse Rate : 76 bpm Respiratory Rate : 14 br/min SpO2 : 96 % Temperature Temporal Artery : 37.0 DegC(Converted to: 98.6 DegF) Pain Present : No actual or suspected pain Chelo Olivia - 01/29/2024 14:50 EST Chief Complaint : Initial Medicare Wellness Patient Counseled : Nutrition, Physical activity Height/Length Measured : 184 cm(Converted to: 6 ft 0 in, 72.44 in) Weight Measured : 61.6 kg(Converted to: 135 lb 13 Ounces, 135.805 lb) Body Mass Index Measured : 18.19 kg/m2 Height in Inches : 72 in Weight in Pounds : 135.52 lb Chelo Olivia - 01/29/2024 14:48 EST Hearing and Vision Screening FT FT Whisper Test Comments : no hearing deficits. Vision Screen Comments : wears corrective lens. patient has eye exams bi yearly. Chelo Olivia - 01/29/2024 14:50 EST Advance Directive FT Advance Directive : Yes Type of Advance Directive : Living will, Medical durable power of attorney law clerk Location of Advance Directive : Family to bring in copy from home Organ Donation Consent : No Chelo Olivia Noemi 01/29/2024 14:50 EST Procedures / Surgeries FT - Procedure History (As Of: 01/29/2024 15:15:17 EST) Anesthesia Minutes: 0 ; Procedure Name: Tonsillectomy ; Procedure Minutes: 0 ; Last Reviewed Dt/Tm: 01/29/2024 14:52:28 EST Family History Family History (As Of: 01/29/2024 15:15:17 EST) Mother: Relation: Mother ; Gender: Female ; Nomenclature: Colon cancer stage 1 ; Value: Positive Medicare/Medicaid Social History FT Social History (As Of: 01/29/2024 15:15:17 EST) Alcohol: Current, Beer, 1-2 times per week Comments: 01/29/2024 14:53 - Chelo Olivia: patient drinks alcohol 2-3 times a week. 1-2 drinks. (Last Updated: 01/29/2024 14:53:22 EST by Chelo Olivia) Tobacco: 5-9 cigarettes (between 1/4 to 1/2 pack)/day in last 30 days Tobacco Use:. Previous treatment: cold turkey. Ready to change: Yes. Comments: 01/29/2024 14:54 - Chelo Olivia: patient smokes 1/4-1/2 ppd. (Last Updated: 01/29/2024 14:54:46 EST by Chleo Olivia) Substance Abuse: Denies Substance Abuse Never Comments: 01/29/2024 14:54 - Chelo Olivia: denies use. (Last Updated: 01/29/2024 14:54:59 EST by Chelo Olivia) Health Risk Assessment FT HRA little interest or pleasure? : No HRA down, depressed, or hopeless? : No Hazards in your house? : No Fall Risk Past Year : No Worried About Falling : No Use a Cane or Walker? : No Someone Helps You in the Morning : No Fallen or felt dizzy standing up? : No Assistance with personal care? : No Trouble taking meds correctly? : No HRA Pain Present : No Able to walk without help? : Yes Ability to shop w/out help : Yes Prepare your own meals? : Yes Housework without help? : Yes Handle money without help : Yes Track own medications without help? : Yes Overall mood for past four weeks : Very well General health rating : Excellent Someone avail. to help if needed? : Yes, as much as I wanted Phys. & emotional health limit social act? : Not at all Chelo Olivia - 01/29/2024 14:50 EST Misc Health Risks Grid Sexual problems : Never Trouble eating well : Never Teeth or denture problems : Never Problems using the telephone : Never Chelo Olivia - 01/29/2024 14:50 EST Confident you control health problems : I do not have any health problems Difficulties driving your car? : No Seatbelts : I always fasten my seat belt Chelo Olivia - 01/29/2024 14:50 EST Depression Screening Little Interest, Pleasure in Activities (ref) : Not at all Feeling Down, Depressed, Hopeless : Not at all Initial Depression Screening Score : 0 SCORE Depression Screening Result : Negative Chelo Olivia - 01/29/2024 14:50 EST Social Determinants (PRAPARE) Only Required Wiley highlighed in yellow need to be filled out and will trigger a referral to the Chronic Care Navigators : Nepales[place] What is your housing situation today? : I have housing You or Family Gone Without Household Needs Past Year : No No Transport to Med Appts/Meetings/Work/Me ds/Necessities : No Currently Live in Physical and Emotional Safety : Yes Social Determinants (PRAPARE) Info RTF : Social D (more content not included)... [facility] Comment on above: Result Comment: Elec tronically Signed By: Scott Waller MD\.br\Date and Time Signed: 02/04/24 12:51 EST\.br\Electronically Co-Signed By: Chelo Olivia\.br\Date and Time Co-Signed: 01/29/24 15:55 EST Family Medicine Office/Clini c Noteon 01-29-2024 Family Medicine Office/Clinic Note Family Medicine Office/Clinic Note Chief Complaint Difficulty urinating despite ongoing treatment HPI Staff Adonis is a 78 year old male presenting after medicare wellness visit Lost weight he thinks it has to do with whatever is going on had CT scan for his prostate Urology appt on the has cath to stay in for 4-6 weeks prostate labs will be taken care of through urology History of Present Illness The patient is a 78-year-old male presenting with difficulty urinating, which is attributed to BPH with obstruction and associated lower urinary tract symptoms. This issue was exacerbated after an episode requiring an ER visit where a Brown catheter was placed to relieve blockage. He previously started on Flomax but reports insufficient duration to evaluate efficacy, having taken it for only five days. In the interim, a Brown catheter remains in place, with a follow-up scheduled with a urologist on the of the month. Due to prostatic obstruction, the patient expresses concern about inability to void post-catheter removal. The plan is to continue the Brown catheter for four to six weeks with the potential for surgical intervention if pharmacological management fails. Additional concerns include a reported decrease in well-balanced meal preparation affecting weight, as the patient lives alone and admits to having inadequate nutrition due to recent personal circumstances. Physical Exam General: alert, no acute distress ENMT: oral mucosa moist Cardiovascular: Regular rate and rhythm, normal peripheral perfusion Respiratory: Lungs clear to auscultation, respirations non labored Extremities: no deformity, no trauma Neurological: oriented x 4, level of consciousness appropriate for age, CN II-XII intact, motor strength equal & normal bilaterally, speech normal Abdomen: Soft, Non-tender, Non-distended, + Bowel sounds Assessment/Plan 1. BPH with obstruction/lower urinary tract symptoms (N40.1: Benign prostatic hyperplasia with lower urinary tract symptoms) Continued monitoring of BPH with pharmacological management through Flomax, though it requires more time (four weeks) for full efficacy assessment. A Brown catheter remains in place to manage current symptoms, with plans to reassess urinary function after catheter removal. Consideration of surgical intervention exists if medication remains ineffective. Ongoing follow-up with the urology team is indicated for continued oversight. 2. Other obstructive and reflux uropathy (N13.8: Other obstructive and reflux uropathy) Management overlaps significantly with existing BPH treatment due to shared pathophysiological obstruction. Continual observation and treatment as appropriate, with preventative strategies to avoid further urinary complications. Follow-up with urology is anticipated for comprehensive care. Orders: 1126F Pain severity quantified; no pain present Advance Care Planning discussed and documented 1123F Annual alcohol misuse screening, 15 min G0442 Annual Depression Screening 15 min G0444 Body Mass Index (BMI) documented 3008F Current tobacco smoker 1034F Depression Screening Negative 3352F Functional status assessed 1170F Influenza immunization status assessed 1030F Lipid Panel Medicare Initial Visit G0438 Medication list documented in medical record 1159F Patient screen for fall risk: no falls in last year or 1 fall with no injury in last year 1101F Pneumococcus immunization status assessed 1022F Review of all meds by a prescribing practitioner or clinical pharmacist documented in EHR 1160F Tobacco Use Cessation Intermediate 3-10 Minutes 46041 Follow-up No qualifying data available Patient Education Benign Prostatic Hyperplasia Problem List/Past Medical History Ongoing Acute urinary retention BMI less than 19,adult BPH with obstruction/lower urinary tract symptoms Chronic constipation Recurrent UTI Shingles SK (seborrheic keratosis) Urinary tract infection Historical No qualifying data Procedure/Surgical History Tonsillectomy. Medications Flomax 0.4 mg Cap, 0.4 mg= 1 cap(s), Oral, Daily, 11 refills lidocaine Top 2% Gel w/Appl 6 mL, 6 mL, Topical, Once Allergies penicillin (Rash) Social History Alcohol Current, Beer, 1-2 times per week, 01/29/2024 Substance Abuse - Denies Substance Abuse, 01/29/2024 Never, 01/29/2024 Tobacco 5-9 cigarettes (between 1/4 to 1/2 pack)/day in last 30 days Tobacco Use:. Previous treatment: cold turkey. Ready to change: Yes., 01/29/2024 Family History Colon cancer stage 1: Mother. Immunizations Vaccine Date Status Comments influenza virus vaccine, inactivated - Not Given Temporary contraindication - reschedule Patient having other health issues and would like to post pone immunization. [facility] Comment on above: Result Comment: Elec tronically Signed By: Scott Waller MD\.br\Date and Time Signed: 01/29/24 16:06 EST Ambulatory Visit Summaryon 1 Ambulatory Visit Summary Ambulatory Visit Summary ADONIS LYNN :1945 Visit Date:01/22/2024 Ambulatory Visit Instructions Your Diagnosis Acute urinary retention Your Care Team Attending Physician - SAUNDRA ALLEN PA-C Primary Care Physician - Scott Waller MD. This Is Your Medications List tamsulosin (Flomax 0.4 mg Cap) Procedures Performed Tonsillectomy. Discharge Vitals Height 184 cm Height 72 in Weight 66 kg Weight 145.2 lb BMI 19.49 What to do next Scheduled Follow-Up Appointments Sunday 2:30 PM EST With: Where: [address] [id number]- Sunday 3:30 PM EST With: Scott Waller MD Where: [address] [address]- You Need to Schedule the Following Appointments Follow Up with [facility] When: Comments: our teacher aide clerical will be contacting you for follow-up Where: [address] [place] [address] [facility] (1) Medications What How Much When Instructions Unchanged tamsulosin (Flomax 0.4 mg Cap) 1 Capsules By Mouth Every day Allergies penicillin (Rash) Problems Ongoing - Any problem that you are currently receiving treatment for. Acute urinary retention BPH with obstruction/lower urinary tract symptoms Chronic constipation Recurrent UTI Shingles SK (seborrheic keratosis) Urinary tract infection Patient Survey You may receive a survey via text or e-mail asking about your office visit. Please share your experience with us by completing your survey. We appreciate your feedback and thank you for choosing us for your care. Education Materials Acute Urinary Retention, Male Acute urinary retention is a condition in which a person is unable to pass urine or can only pass a little urine. This condition can happen suddenly and last for a short time. If left untreated, it can become long-term (chronic) and result in kidney damage or other serious complications. What are the causes? This condition may be caused by: ??? Obstruction or narrowing of the tube that drains the bladder (urethra). This may be caused by surgery, problems with nearby organs, or injury to the bladder or urethra. ??? Problems with the nerves in the bladder. ??? Tumors in the area of the pelvis, bladder, or urethra. ??? Certain medicines. ??? Bladder or urinary tract infection. ??? Constipation. What increases the risk? This condition is more likely to develop in older men. As men age, their prostate may become larger and may start to press or squeeze on the bladder or the urethra. Other chronic health conditions can increase the risk of acute urinary retention. These include: ??? Diseases such as multiple sclerosis. ??? Spinal cord injuries. ??? Diabetes. ??? Degenerative cognitive conditions, such as delirium or dementia. ??? Psychological conditions. A man may hold his urine due to trauma or because he does not want to use the bathroom. What are the signs or symptoms? Symptoms of this condition include: ??? Trouble urinating. ??? Pain in the lower abdomen. How is this diagnosed? This condition is diagnosed based on a physical exam and your medical history. You may also have other tests, including: ??? An ultrasound of the bladder or kidneys or both. ??? Blood tests. ??? A urine analysis. ??? Additional tests may be needed, such as a CT scan, MRI, and kidney or bladder function tests. How is this treated? Treatment for this condition may include: ??? Medicines. ??? Placing a thin, sterile tube (catheter) into the bladder to drain urine out of the body. This is called an indwelling urinary catheter. After it is inserted, the catheter is held in place with a small balloon that is filled with sterile water. Urine drains from the catheter into a collection bag outside of the body. ??? Behavioral therapy. ??? Treatment for other conditions. If needed, you may be treated in the hospital for kidney function problems or to manage other complications. Follow these instructions at home: Medicines ??? Take [id number] and prescription medicines only as told by your health care provider. Avoid certain medicines, such as decongestants, antihistamines, and some prescription medicines. Do not take any medicine unless your health care provider approves. ??? If you were prescribed an antibiotic medicine, take it as told by your health care provider. Do not stop using the antibiotic even if you start to feel better. General instructions ??? Do not use any products that contain nicotine or tobacco. These products include cigarettes, chewing tobacco, and vaping devices, such as e-cigarettes. If you need help quitting, as (more content not included)... [facility] Urology Office/Clinic Noteon 01-17-2024 Urology Office/Clinic Note Urology Office/Clinic Note Chief Complaint f/u [facility] HPI Staff 78 yr old male here for [facility] ER f/u. pt went to ED with c/o constipation. enlarged prostate, enlarged bladder, per CT scan. PVR at [facility] 1500cc, cath was placed and 2200cc came out. pt still has Brown in today. See A&P for additional details from provider HPI. Review of Systems PHQ Score Initial Depression Screen Score: 0 SCORE no fever, chills, malaise, myalgia. no rash/lesions. no chest pain, palpitations, or SOB. no nausea, vomiting. no unilateral calf swelling, redness, pain Physical Exam Vitals & Measurements HR: 86(Peripheral) BP: 146/80 HT: 72 in HT: 184 cm WT: 66 kg WT: 145.2 lb BMI: 19.49 General: nontoxic, NAD Mouth: moist mucosa Lungs: normal respiratory effort Cardio: regular rate, good distal perfusion Abdomen: nondistended Neurologic: Grossly normal Skin: No rashes or suspicious lesions Assessment/Plan 1. Acute urinary retention (R33.8: Other retention of urine) Was advised to go to ER yesterday by PCP. CT showed 7cm stool ball. Had manual disimpaction followed by enema. Was also found to be in acute retention - bladder well above the umbilicus on CT ([id number] cm). PVR >1500ml but when brown placed he had over 2200 come out. Dc'd w brown in place. Wants it removed today. I explained that his bladder needs more time to decompress after being stretched to such an extent. Also needs time to work on his bowels. And we need to give Flomax time to work. Pt fought me on this for quite a while but finally agrees to come back Sunday for brown removal. -Return early next week for brown removal. -Return following day for PVR. If <150ml no action needed, f/u for scope. If 150-300ml, will increase Flomax to 2 caps daily as long as BP ok and no dizziness & will need another PVR in 1 week. If >300ml, brown needs replaced. 2. BPH with obstruction/lower urinary tract symptoms (N40.1: Benign prostatic hyperplasia with lower urinary tract symptoms) IPPS 13 QOL 5 On no BPH meds. Prostate 44cc per CT measurements which is not all that big, petra for his age. But discussed that it could still be obstructive/causing his sx. Showed illustration w interior view. We discussed treatment options including medication (Flomax, Proscar, etc) and procedures (TURP, Rezum, Urolift) including risks and benefits of each option. Pt was provided with literature to review for each option. He will be scheduled for cystoscopy with MD for visualization of the prostatic urethra and surgical planning. Does not need TRUS as we already have sizing from recent CT. The risks and benefits for cystoscopy have been discussed. The risks include bleeding, infection, and irritation of the bladder and urinary channel, among others. The patient, after being informed of procedural details and after questions have been answered, wishes to proceed. Full informed consent has been obtained. Will order Local anesthesia. -Start Flomax. Risks/benefits/side effects discussed. -Schedule cysto. 3. Chronic constipation (K59.09: Other constipation) Typically has BM q3-4 days. This is lifelong. Says its firm/solid but not painful or difficult to pass just takes a long time. When I suggested this constitutes constipation, pt strongly disagrees with me. -Bowel management w stool softener, daily Miralax, increased fluids. Keep f/u w GI (was referred by ER). 4. Recurrent UTI (N39.0: Urinary tract infection, site not specified) Saw PCP 10/17 w urgency, weak stream, burning. Cx showed 100k Enterococcus. Tx'd w Bactrim x 7d. Called w continued sx 10/23. Cx showed 40k Enterococcus. Tx'd w another round of Bactrim x 7d. Had some improvement in frequency, urgency but was still having occasional burning. Cx 10/29 showed 10k Enterococcus. Tx'd w Keflex x 7d. Called 11/11 w worsening sx. Cx showed 40k Enterococcus. Tx'd w Macrobid x 7d. Pt states this worked within 3-4 days and sx completely resolved. Was back to baseline until last few days. See #1. Discussed w pt did incomplete bladder emptying (from BPH/constipation) cause the UTIs or did the UTIs cause the incomplete emptying? Hard to say. Other obstructive and reflux uropathy (N13.8: Other obstructive and reflux uropathy) Orders: tamsulosin, 0.4 mg = 1 cap(s), Oral, Daily, # 30 cap(s), Refills(s) 11, Pharmacy: [id number], 184, cm, 01/17/24 12:55:00 EDT, Height/Length Dosing, 66, kg, 01/17/24 12:55:00 EDT, Weight Dosing Follow-up With When Contact Information [facility] [place] [address] Business (1) Additional Instructions: our teacher aide clerical will be contacting you for follow-up Patient Education Acute Urinary Retention, Male Problem List/Past Medical History Ongoing Acute urinary retention BPH with obstruction/lower urinary tract symptoms Chronic constipation Recurrent UTI Shingles SK (seborrheic keratosis) Urinary tract infection Historical (more content not included)... Normal [facility] Comment on above: Result Comment: Elec tronically Signed By: SAUNDRA ALLEN PA-C.max\Date and Time Signed: 01/17/24 14:23 EDT C Urineon 11-17-2023 Bacteria identified Cx Nom (U) Microbiology PROCEDURE: Urine Culture [R1] SOURCE: U CleanCatch BODY SITE: COLLECTED DATE/TIME: 11/14/2023 10:13 EDT RECEIVED DATE/TIME: 11/14/2023 19:24 EDT START DATE/TIME: 11/14/2023 19:24 EDT FREE TEXT SOURCE: Sridhar FLOOD, Scott Waller MD, Scott Robertson FINAL REPORTS Final Report [] Verified Date/Time: 11/17/2023 09:44 EDT 25,000 cfu/ml Enterococcus faecalis 2,000 cfu/ml Mixed skin contaminants SUSCEPTIBILITY RESULTS __ LEGEND: S=Susceptible, N/R=Not Reported, Blank=Data not available, or drug not advisable or tested, I=Intermediate, ESBL=Extended spectrum beta-lactamase, R=Resistant, TFG=Thymidine-dependen t strain, JAYLEN=Beta-lactamase positive, PETERSON=mcg/m;(mg/L), S*=Predicted susceptible interp, R*=Predicted resistant interp Entfaeca Antibiotic PETERSON Dilutn PETERSON Interp Ampicillin <=2 S Ciprofloxacin <=1 S Daptomycin <=1 S Levofloxacin <=1 S Linezolid <=2 S Nitrofurantoin <=32 S Penicillin 2 S Rifampin 2 I Tetracycline <=4 S Vancomycin 1 S Performing Locations R1: This test was performed at: [facility], [address] [place] [address], [id number] , , Normal [facility] Comment on above: Performed By: #### 2 [id number] #### [facility] [address] [place] [address] Performed By: #### 2 [id number] ####[facility] [address] [place] [address] URINALYSISOrdered By: SYSTEM SYSTEM on 11-14-2023 Bacteria Auto Ql (U) Trace /HPF Normal Trace/HPF [facility] UA Auto SS Bilirubin Ql (U) Negative Normal Negativemg/dL [facility] UA Auto SS Clarity (U) Ex.Turbid *ABN* (11/14/23 10:13 AM) Invalid Interpretation Code Clear [facility] UA Auto SS Color (U) Light-Jasper 1 *ABN* (11/14/23 10:13 AM) Invalid Interpretation Code Yellow [facility] UA Auto SS Comment on above: Interpretive Data: M icroscopic readings are only performed on those samples that meet specific criteria set forth by [facility]. Glucose Ql (U) Negative Normal Negativemg/dL [facility] UA Auto SS Hemoglobin Auto test strip (U) [Mass/Vol] 2+ mg/dL Invalid Interpretation Code Negativemg/dL [facility] UA Auto SS Ketones Auto test strip Ql (U) Negative Normal Negativemg/dL [facility] UA Auto SS Leukocyte clumps Auto (Urine sed) [#/Area] >30 graded/HPF Invalid Interpretation Code [facility] UA Auto SS Leukocyte esterase Auto test strip Ql (U) 500 Heather/uL Heather/uL Invalid Interpretation Code NegativeLeu/u L [facility] UA Auto SS Mucus Auto Ql (U) Negative Normal Negativegr carter d/LPF [facility] UA Auto SS Nitrite Auto test strip Ql (U) Negative Normal Negativemg/dL [facility] UA Auto SS pH (U) 6.0 *NA* (11/14/23 10:13 AM) Invalid Interpretation Code 5.0 - 9.0 [facility] UA Auto SS Protein Ql (U) 1+ mg/dL Invalid Interpretation Code Negativemg/dL [facility] UA Auto SS RBC Ql (U) 4-20 graded/HPF Invalid Interpretation Code 0-3graded/HPF [facility] UA Auto SS Specific gravity (U) [Rel density] 1.011 *NA* (11/14/23 10:13 AM) Invalid Interpretation Code 1.005 - 1.030 [facility] UA Auto SS Urobilinogen (U) [Mass/Vol] Negative Normal Negativemg/dL [facility] UA Auto SS WBC Auto (Urine sed) [#/Area] >75 graded/HPF Invalid Interpretation Code 0-5graded/HPF [facility] UA Auto SS URINALYSISOrdered By: Kerry Sampson on 11-14-2023 UA Spec Desc Clean Catch (11/14/23 10:13 AM) Normal [facility] UA Auto SS Urinalysis with Microon 10-25 Bacteria Auto Ql (U) Trace Normal Trace [facility] Comment on above: Performed By: #### 4 [id number] #### [facility] [address] [place] [address] Bilirubin Ql (U) Negative Normal Negative [facility] Comment on above: Performed By: #### 4 [id number] #### [facility] [address] [place] [address] Clarity (U) Ex.Turbid Abnormal Clear [facility] Comment on above: Performed By: #### 4 [id number] #### [facility] [address] [place] [address] Color (U) Light-Jasper Abnormal Yellow [facility] Comment on above: Result Comment: Micr oscopic readings are only performed on those samples that meet specific criteria set forth by [facility]. Performed By: #### 4 [id number] #### [facility] [address] [place] [address] Glucose Ql (U) Negative Normal Negative [facility] Comment on above: Performed By: #### 4 [id number] #### [facility] [address] [place] [address] Hemoglobin Auto test strip (U) [Mass/Vol] 2+ mg/dL Abnormal Negative [facility] Comment on above: Performed By: #### 4 [id number] #### [facility] [address] [place] [address] Ketones Auto test strip Ql (U) Negative Normal Negative [facility] Comment on above: Performed By: #### 4 [id number] #### [facility] [address] [place] [address] Leukocyte clumps Auto (Urine sed) [#/Area] >30 Abnormal [facility] Comment on above: Performed By: #### 4 [id number] #### [facility] [address] [place] [address] Leukocyte esterase Auto test strip Ql (U) 500 Heather/uL Abnormal Negative [facility] Comment on above: Performed By: #### 4 [id number] #### [facility] [address] [place] [address] Mucus Auto Ql (U) Negative Normal Negative [facility] Comment on above: Performed By: #### 4 [id number] #### [facility] [address] [place] [address] Nitrite Auto test strip Ql (U) Negative Normal Negative [facility] Comment on above: Performed By: #### 4 [id number] #### [facility] [address] [place] [address] pH (U) 6.0 [pH] Invalid Interpretation Code 5.0-9.0 [facility] Comment on above: Performed By: #### 4 [id number] #### [facility] [address] [place] [address] Protein Ql (U) 1+ mg/dL Abnormal Negative [facility] Comment on above: Performed By: #### 4 [id number] #### [facility] [address] [place] [address] RBC Ql (U) 4-20 Abnormal 0-3 [facility] Comment on above: Performed By: #### 4 [id number] #### [facility] [address] [place] [address] Specific gravity (U) [Rel density] 1.011 Invalid Interpretation Code 1.005-1.030 [facility] Comment on above: Performed By: #### 4 [id number] #### [facility] [address] [place] [address] Urobilinogen (U) [Mass/Vol] Negative Normal Negative [facility] Comment on above: Performed By: #### 4 [id number] #### [facility] [address] [place] [address] WBC Auto (Urine sed) [#/Area] >75 Abnormal 0-5 [facility] Comment on above: Performed By: #### 4 [id number] #### [facility] [address] [place] [address] Type of Urine collection method Clean Catch Normal [facility] Comment on above: Performed By: #### 4 [id number] #### [facility] [address] [place] [address] C Urineon 11-02-2023 Bacteria identified Cx Nom (U) Microbiology PROCEDURE: Urine Culture [R1] SOURCE: U Random BODY SITE: COLLECTED DATE/TIME: 10/30/2023 12:57 EDT RECEIVED DATE/TIME: 10/30/2023 18:55 EDT START DATE/TIME: 10/30/2023 18:55 EDT FREE TEXT SOURCE: Sridhar FLOOD, Scott Waller MD, Scott Robertson FINAL REPORTS Final Report [] Verified Date/Time: 11/02/2023 09:29 EDT 10,000 cfu/ml Enterococcus faecalis SUSCEPTIBILITY RESULTS __ LEGEND: S=Susceptible, N/R=Not Reported, Blank=Data not available, or drug not advisable or tested, I=Intermediate, ESBL=Extended spectrum beta-lactamase, R=Resistant, TFG=Thymidine-dependen t strain, JAYLEN=Beta-lactamase positive, PETERSON=mcg/m;(mg/L), S*=Predicted susceptible interp, R*=Predicted resistant interp Entfaeca Antibiotic PETERSON Dilutn PETERSON Interp Ampicillin <=2 S Ciprofloxacin <=1 S Daptomycin 4 S Levofloxacin <=1 S Linezolid <=2 S Nitrofurantoin <=32 S Penicillin 2 S Rifampin <=1 S Tetracycline <=4 S Vancomycin 1 S Performing Locations R1: This test was performed at: [facility], [address] [place] [address], [id number]- , , Normal [facility] Comment on above: Performed By: #### 2 [id number] #### [facility] [address] [place] [address] Urinalysis with Microon 08-0 Bilirubin Ql (U) Negative Normal Negative [facility] Comment on above: Performed By: #### 4 [id number] #### [facility] [address] [place] [address] Clarity (U) Turbid Abnormal Clear [facility] Comment on above: Performed By: #### 4 [id number] #### [facility] [address] [place] [address] Color (U) Yellow Normal Yellow [facility] Comment on above: Result Comment: Micr oscopic readings are only performed on those samples that meet specific criteria set forth by [facility]. Performed By: #### 4 [id number] #### [facility] [address] [place] [address] Epithelial cells.squamous Auto (Urine sed) [#/Area] 0-2 Invalid Interpretation Code [facility] Comment on above: Performed By: #### 4 [id number] #### [facility] [address] [place] [address] Glucose Ql (U) Negative Normal Negative [facility] Comment on above: Performed By: #### 4 [id number] #### [facility] [address] [place] [address] Hemoglobin Auto test strip (U) [Mass/Vol] 1+ mg/dL Abnormal Negative [facility] Comment on above: Performed By: #### 4 [id number] #### [facility] [address] [place] [address] Ketones Auto test strip Ql (U) Negative Normal Negative [facility] Comment on above: Performed By: #### 4 [id number] #### [facility] [address] [place] [address] Leukocyte clumps Auto (Urine sed) [#/Area] 11-20 Abnormal [facility] Comment on above: Performed By: #### 4 [id number] #### [facility] [address] [place] [address] Leukocyte esterase Auto test strip Ql (U) 500 Heather/uL Abnormal Negative [facility] Comment on above: Performed By: #### 4 [id number] #### [facility] [address] [place] [address] Mucus Auto Ql (U) Negative Normal Negative [facility] Comment on above: Performed By: #### 4 [id number] #### [facility] [address] [place] [address] Nitrite Auto test strip Ql (U) Negative Normal Negative [facility] Comment on above: Performed By: #### 4 [id number] #### [facility] [address] [place] [address] pH (U) 6.5 [pH] Invalid Interpretation Code 5.0-9.0 [facility] Comment on above: Performed By: #### 4 [id number] #### [facility] [address] [place] [address] Protein Ql (U) Trace Abnormal Negative [facility] Comment on above: Performed By: #### 4 [id number] #### [facility] [address] [place] [address] RBC Ql (U) 4-20 Abnormal 0-3 [facility] Comment on above: Performed By: #### 4 [id number] #### [facility] [address] [place] [address] Specific gravity (U) [Rel density] 1.006 Invalid Interpretation Code 1.005-1.030 [facility] Comment on above: Performed By: #### 4 [id number] #### [facility] [address] [place] [address] Urobilinogen (U) [Mass/Vol] Negative Normal Negative [facility] Comment on above: Performed By: #### 4 [id number] #### [facility] [address] [place] [address] WBC Auto (Urine sed) [#/Area] >75 Abnormal 0-5 [facility] Comment on above: Performed By: #### 4 [id number] #### [facility] [address] [place] [address] Type of Urine collection method Clean Catch Normal [facility] Comment on above: Performed By: #### 4 [id number] #### [facility] [address] [place] [address] C Urineon 10-27-2023 Bacteria identified Cx Nom (U) Microbiology PROCEDURE: Urine Culture [R1] SOURCE: U CleanCatch BODY SITE: COLLECTED DATE/TIME: 10/25/2023 09:21 EDT RECEIVED DATE/TIME: 10/25/2023 19:33 EDT START DATE/TIME: 10/25/2023 19:33 EDT FREE TEXT SOURCE: Sridhar FLOOD, Scott Waller MD, Scott Robertson FINAL REPORTS Final Report [] Verified Date/Time: 10/27/2023 11:19 EDT 40,000 cfu/ml Enterococcus faecalis SUSCEPTIBILITY RESULTS __ LEGEND: S=Susceptible, N/R=Not Reported, Blank=Data not available, or drug not advisable or tested, I=Intermediate, ESBL=Extended spectrum beta-lactamase, R=Resistant, TFG=Thymidine-dependen t strain, JAYLEN=Beta-lactamase positive, PETERSON=mcg/m;(mg/L), S*=Predicted susceptible interp, R*=Predicted resistant interp Entfaeca Antibiotic PETERSON Dilutn PETERSON Interp Ampicillin <=2 S Ciprofloxacin <=1 S Daptomycin 4 S Levofloxacin <=1 S Linezolid <=2 S Nitrofurantoin <=32 S Penicillin 2 S Rifampin <=1 S Tetracycline <=4 S Vancomycin 2 S Performing Locations R1: This test was performed at: [facility], [address] [place] [address], [address] , , [facility] Comment on above: Performed By: #### 2 [id number] #### [facility] [address] [place] [address] C Urineon 10-20-2023 Bacteria identified Cx Nom (U) Microbiology PROCEDURE: Urine Culture [R1] SOURCE: U CleanCatch BODY SITE: COLLECTED DATE/TIME: 10/18/2023 10:57 EDT RECEIVED DATE/TIME: 10/18/2023 17:57 EDT START DATE/TIME: 10/18/2023 17:57 EDT FREE TEXT SOURCE: Sridhar FLOOD, Scott Waller MD, Scott Robertson FINAL REPORTS Final Report [] Verified Date/Time: 10/20/2023 09:18 EDT >100,000 cfu/ml Enterococcus faecalis SUSCEPTIBILITY RESULTS __ LEGEND: S=Susceptible, N/R=Not Reported, Blank=Data not available, or drug not advisable or tested, I=Intermediate, ESBL=Extended spectrum beta-lactamase, R=Resistant, TFG=Thymidine-dependen t strain, JAYLEN=Beta-lactamase positive, PETERSON=mcg/m;(mg/L), S*=Predicted susceptible interp, R*=Predicted resistant interp Entfaeca Antibiotic PETERSON Dilutn PETERSON Interp Ampicillin <=2 S Ciprofloxacin <=1 S Daptomycin 4 S Levofloxacin <=1 S Linezolid <=2 S Nitrofurantoin <=32 S Penicillin 2 S Rifampin <=1 S Tetracycline <=4 S Vancomycin 2 S Performing Locations R1: This test was performed at: [facility], [address] [place] [address], [id number]- , , [facility] Comment on above: Performed By: #### 2 [id number] #### [facility] [address] [place] [address] Ambulatory Visit Summaryon 0 10-18-2023 Ambulatory Visit Summary Ambulatory Visit Summary ADONIS LYNN :1945 Visit Date:10/18/2023 Ambulatory Visit Instructions Your Diagnosis Shingles Urinary tract infection Body mass index (BMI) of 19 or less in adult Nonsmoker Your Care Team Attending Physician - Scott Waller MD Primary Care Physician - Scott Waller MD This Is Your Medications List sulfamethoxazole-trime thoprim (Bactrim D.S. 800 mg-160 mg Tab) Procedures Performed Tonsillectomy. Discharge Vitals Temperature (Temporal Artery) 36.5 ?C Heart Rate (Peripheral) 68 Respiratory Rate 16 Blood Pressure 136/80 Height 183 cm Height 72 in Weight 65.3 kg Weight 143.66 lb BMI 19.5 What to do next Scheduled Follow-Up Appointments 2023 9:30 AM EDT With: Where: [address] [address] 2023 10:30 AM EDT With: Scott Waller MD Where: [address] [address]- Medications What How Much When Why Instructions New sulfamethoxazole-trime thoprim (Bactrim D.S. 800 mg-160 mg Tab) 1 Tablets By Mouth 2 times a day Shingles Urinary tract infection Body mass index (BMI) of 19 or less in adult Nonsmoker Duration: 7 Days Pickup at [id number] Pharmacy Information [id number]: [address], [place] [id number] [phone] Allergies penicillin (Rash) Problems Ongoing - Any problem that you are currently receiving treatment for. Shingles SK (seborrheic keratosis) Urinary tract infection Patient Survey You may receive a survey via text or e-mail asking about your office visit. Please share your experience with us by completing your survey. We appreciate your feedback and thank you for choosing us for your care. Normal [facility] Medicine Office/Clini c Noteon 10-18-2023 Family Medicine Office/Clinic Note Family Medicine Office/Clinic Note HPI Staff Edalvaro is a 78 year old male presenting for one month follow up shingles MILES rxed medrol dosepak Shingles have cleared but has a new problem Acute: on sunday having urinary urgency and then cannot go at all, will dribble amounts and it saez and feels itching inside Dysuria: Onset: sunday Symptoms: urgency but then cannot go only dribbles, burning and an itching feeling inside OTC used: nothing UA in office documented in chart History of Present Illness Please see staff HPI. Patient shingles have resolved. Review of Systems PHQ Score Initial Depression Screen Score: 0 SCORE Physical Exam Vitals & Measurements T: 36.5 ?C(Temporal Artery) HR: 68(Peripheral) RR: 16 BP: 136/80 SpO2: 99% HT: 72 in HT: 183 cm WT: 65.3 kg WT: 143.66 lb BMI: 19.5 General: alert, no acute distress ENMT: oral mucosa moist, Cardiovascular: regular rate and rhythm, normal peripheral perfusion Respiratory: Lungs CTA, respirations non labored Extremities: no deformity, no trauma Neurological: oriented x 4, LOC appropriate for age, CN II-XII intact, motor strength equal & normal bilaterally, speech normal Abdomen: Soft, Nontender, Non-distended, + BS Assessment/Plan 1. Shingles (B02.9: Zoster without complications) Resolved at this time. Patient did follow-up with Optho. Patient will be following up with Derm soon. Ordered: sulfamethoxazole-trime thoprim, 1 tab(s), Oral, BID for 7 day(s), 14 tab(s), Refill(s) 0, [id number], 183, cm, 10/18/23 10:49:00 EDT, Height/Length Dosing, 65.3, kg, 10/18/23 10:49:00 EDT, Weight Dosing Body Mass Index (BMI) documented 3008F Current tobacco non-user 1036F Depression Screening Negative 3352F Most recent diastolic blood pressure 80-89 mm Hg 3079F Patient screen for fall risk: no falls in last year or 1 fall with no injury in last year 1101F Systolic BP 130-139 mm Hg (Most Recent) 3075F Urnls Dip Stick Auto w/o Microscopy POC [id number] 2. Urinary tract infection (N39.0: Urinary tract infection, site not specified) Positive UA. Will send for culture. Will start Bactrim DS. Ordered: sulfamethoxazole-trime thoprim, 1 tab(s), Oral, BID for 7 day(s), 14 tab(s), Refill(s) 0, [id number], 183, cm, 10/18/23 10:49:00 EDT, Height/Length Dosing, 65.3, kg, 10/18/23 10:49:00 EDT, Weight Dosing 3. Body mass index (BMI) of 19 or less in adult (Z68.1: Body mass index [BMI] 19.9 or less, adult) BMI education given. Ordered: sulfamethoxazole-trime thoprim, 1 tab(s), Oral, BID for 7 day(s), 14 tab(s), Refill(s) 0, [id number], 183, cm, 10/18/23 10:49:00 EDT, Height/Length Dosing, 65.3, kg, 10/18/23 10:49:00 EDT, Weight Dosing Body Mass Index (BMI) documented 3008F Current tobacco non-user 1036F Depression Screening Negative 3352F Most recent diastolic blood pressure 80-89 mm Hg 3079F Patient screen for fall risk: no falls in last year or 1 fall with no injury in last year 1101F Systolic BP 130-139 mm Hg (Most Recent) 3075F 4. Nonsmoker (Z78.9: Other specified health status) Please continue not to smoke. Ordered: sulfamethoxazole-trime thoprim, 1 tab(s), Oral, BID for 7 day(s), 14 tab(s), Refill(s) 0, [id number], 183, cm, 10/18/23 10:49:00 EDT, Height/Length Dosing, 65.3, kg, 10/18/23 10:49:00 EDT, Weight Dosing Body Mass Index (BMI) documented 3008F Current tobacco non-user 1036F Depression Screening Negative 3352F Most recent diastolic blood pressure 80-89 mm Hg 3079F Patient screen for fall risk: no falls in last year or 1 fall with no injury in last year 1101F Systolic BP 130-139 mm Hg (Most Recent) 3075F Orders: Urine Culture Follow-up No qualifying data available Problem List/Past Medical History Ongoing Shingles SK (seborrheic keratosis) Urinary tract infection Historical No qualifying data Procedure/Surgical History Tonsillectomy. Medications Bactrim D.S. 800 mg-160 mg Tab, 1 tab(s), Oral, BID Allergies penicillin (Rash) Social History Tobacco Never (less than 100 in lifetime) Tobacco Use:. Never Smokeless Tobacco Use:. Cigarettes, 10/18/2023 Family History Colon cancer stage 1: Mother. Lab Results Ambulatory Point of Care Results Bilirubin Urine Dipstick: Negative (10/18/23 10:53:00) Blood Urine Dipstick: Trace-intact (10/18/23 10:53:00) Glucose Urine Dipstick: Negative (10/18/23 10:53:00) Ketones Urine Dipstick: Negative (10/18/23 10:53:00) Leukocytes Urine Dipstick: 3+ Large (10/18/23 10:53:00) Nitrite Urine Dipstick: Negative (10/18/23 10:53:00) Protein Urine Dipstick: Negative (10/18/23 10:53:00) Specific [place] Urine Dipstick: 1.020 (10/18/23 10:53:00) Urine Appearance Urine Dipstick: Cloudy (10/18/23 10:53:00) Urine Color Urine Dipstick: Raven (10/18/23 10:53:00) Urobilinogen Urine Dipstick: Normal 0.2-1 EU/dl (10/18/23 10:53:00) pH Urine Dipstick: 6 (10/18/23 10:53:00) Normal [facility] Comment on above: Result Comment: Elec tronically Signed By: Sridhar FLOOD, Scott Maldonado.max\Date and Time Signed: 10/18/23 11:09 EDT Family Medicine Office/Clini c Noteon 09-24-2023 Family Medicine Office/Clinic Note Family Medicine Office/Clinic Note HPI Staff Adonis is a 78 year old male presenting to establish care Acute: spot on nose that's tender- thought he was bit by something, scabs on his face and swelling in his left eye.Sunday, Sunday it got worse, went to [facility] ER dx cellulitis. Cipro questions when exactly to take this pill. Has been taking taking Aleve for the swelling He has not started the abx due to not knowing if there is SE if he takes the Cephalexin with Aleve Establish Care: History: Any previous diagnosis: N/A has not been to a doctor in years History of seeing any specialist: None When was your last doctors visit: 2003 Last provider: was a walk in clinic so no doctor Any recent labs: none Health Maintenance UTD: Colonoscopy: in the sometime PSA: no Acute: Current issues/complaints: Cellulitis on nose History of Present Illness - Here to establish care. - Has the spot on his face. - Has been improving. - NO issues with sight Review of Systems PHQ Score Initial Depression Screen Score: 0 SCORE Physical Exam Vitals & Measurements T: 37.5 ?C(Temporal Artery) HR: 64(Peripheral) RR: 18 BP: 128/84 SpO2: 97% HT: 72 in HT: 183 cm WT: 63.2 kg WT: 139.04 lb BMI: 18.87 General: alert, no acute distress ENMT: oral mucosa moist, Cardiovascular: normal peripheral perfusion Respiratory: respirations non labored Extremities: no deformity, no trauma, Dried vesicle and a red rash in the L upper quadrant of the face. Does not look to involve the eye. Neurological: oriented x 4, LOC appropriate for age, CN II-XII intact, motor strength equal & normal bilaterally, speech normal Assessment/Plan 1. Shingles (B02.9: Zoster without complications) - Called to get a patient an apt with Optho - To see the Optho the next day - Medrol to help - Follow up PRN Ordered: [facility] External Ambulatory Referral 2. SK (seborrheic keratosis) (L82.1: Other seborrheic keratosis) - Will send to derm for further work up. Ordered: [facility] External Ambulatory Referral Orders: methylPREDNISolone, = 1 packet(s), Oral, As Directed, as directed on package labeling, X 6 day(s), # 21 tab(s), Refills(s) 0, [id number], 183, cm, 09/18/23 11:00:00 EDT, Height/Length Dosing, 63.2, kg, 09/18/23 11:00:00 EDT, Weight Dosing Follow-up No qualifying data available Problem List/Past Medical History Ongoing Shingles SK (seborrheic keratosis) Historical No qualifying data Procedure/Surgical History Tonsillectomy. Medications cephalexin 500 mg Cap, 500 mg= 1 cap(s), Oral, q12hr Allergies No active allergies Social History Tobacco Never (less than 100 in lifetime) Tobacco Use:. Never Smokeless Tobacco Use:. Cigarettes, 09/18/2023 Family History Colon cancer stage 1: Mother. [facility] Comment on above: Result Comment: Elec tronically Signed By: Scott Waller MD\.br\Date and Time Signed: 09/24/23 15:34 EDT Ambulatory Visit Summaryon 0 09-18-2023 Ambulatory Visit Summary ADONIS LYNN :1945 Visit Date:09/18/2023 Ambulatory Visit Instructions Your Diagnosis Shingles SK (seborrheic keratosis) Your Care Team Attending Physician - Scott Waller MD Primary Care Physician - Scott Waller MD This Is Your Medications List cephalexin (cephalexin 500 mg Cap) methylPREDNISolone (Medrol 4 mg Tab) Procedures Performed Tonsillectomy. Discharge Vitals Temperature (Temporal Artery) 37.5 ?C Heart Rate (Peripheral) 64 Respiratory Rate 18 Blood Pressure 128/84 Height 183 cm Height 72 in Weight 63.2 kg Weight 139.04 lb BMI 18.87 What to do next Scheduled Follow-Up Appointments 2023 10:45 AM EDT With: Scott Waller MD Where: Family Medicine [facility] Vital Signs Date Time Vital Sign Value Performing Clinician Jose L rojas 01-17-2024 12:41-0400 Blood Pressure Location SAUNDRA TIFFANY [facility] 01-17-2024 12:41-0400 Diastolic blood pressure 80 mm[Hg] SAUNDRA ALLEN [facility] 01-17-2024 12:41-0400 Heart rate 86 /min SAUNDRA ALLEN [facility] 01-17-2024 12:41-0400 Systolic blood pressure 146 mm[Hg] SAUNDRA ALLEN [facility] Encounters Encounter Date Encounter Type Care Provider Facility Start: 03-05-2024 ambulatory Kelly M. Franchescae Facility:[facility] [place] Start: 02-19-2024 End: 02-19-2024 Lab Drop off SAUNDRA ALLEN [facility] Start: 02-19-2024 End: 02-19-2024 ambulatory PA-C SAUNDRA ALLEN Facility:[facility] Start: 02-19-2024 End: 02-19-2024 Patient encounter procedure SAUNDRA ALLEN [facility] Start: 02-12-2024 End: 02-12-2024 ambulatory Kelly M. Lue Facility:[facility] [place] Start: 02-12-2024 End: 02-12-2024 Patient encounter procedure Kelly M. Franchescae [facility] Start: 02-11-2024 End: 02-11-2024 ambulatory Kelly M. Lue Facility:[facility] Start: 02-11-2024 End: 02-11-2024 Patient encounter procedure Kelly BoyleAdrienne Claudy [facility] Start: 01-29-2024 End: 01-29-2024 ambulatory Scott Waller Facility: [facility] [place] Start: 01-22-2024 End: 01-22-2024 ambulatory PA-C SAUNDRA OWENRY Facility:[facility] [place] Start: 01-22-2024 End: 01-22-2024 Patient encounter procedure [facility] OWEN[facility] Start: 01-21-2024 ambulatory PA-C SAUNDRA ALLEN F acility:[facility] [place] Start: 01-17-2024 End: 01-17-2024 ambulatory PA-C SAUNDRA Srivastava TIFFANY Facility:[facility] [place] Start: 01-17-2024 End: 01-17-2024 Patient encounter procedure SAUNDRA OWENRY [facility] Start: 12-18-2023 End: 12-18-2023 ambulatory SAUNDRA Atif TIFFANY Facility:[facility] [place] Start: 12-18-2023 End: 12-18-2023 Patient encounter procedure SA[facility]DR[facility] OWENRY [facility] Start: 11-15-2023 ambulatory SAUNDRA ALLEN Facility :[facility] [place] Start: 11-14-2023 End: 11-14-2023 Lab Drop off Scott Waller [facility] Start: 11-14-2023 End: 11-14-2023 ambulatory MD Scott Waller [facility] [place] Start: 10-30-2023 End: 10-30-2023 ambulatory Scott Waller Facility:[facility] [place] Start: 10-30-2023 End: 10-30-2023 Lab Drop off Scott AtifAdrienne Sridhar [facility] Start: 10-25-2023 End: 10-25-2023 Lab Drop off Scott SrivastavaAdrienne Sridhar [facility] Start: 10-25-2023 End: 10-25-2023 ambulatory UT Scott Waller Facility:[facility] Start: 10-18-2023 End: 10-18-2023 Lab Drop off Scott Waller [facility] Start: 10-18-2023 End: 10-18-2023 ambulatory Scott Waller Facility:[facility] Start: 09-18-2023 End: 09-18-2023 ambulatory Scott Waller Facility:[facility] [place] Start: 09-17-2023 ambulatory Scott Waller Facility:[facility] [place] Procedures Date Procedure Procedure Detail Performing Clinician Tonsillectomy Scott Waller Plan of Treatment Date Care Activity Detail Author Start: 01-29-2025 ambulatory Ambulatory Facility:[facility] Start: 03-12-2024 ambulatory Ambulatory Facility:[facility] [place] Payers Date Payer Category Payer Private Health Insurance [id number] 2009 Medicare [id number] 1945 Unknown [id number] 2.16.8 [id number] 1945 Unknown [id number] 2.16.8 40.1.148646.3.579.2.727 1945 Unknown [id number] 2.16.8 40.1.980298.3.579.2.727 1945 Unknown [id number] 2.16.8 40.1.719983.3.579.2.727 1945 Unknown [id number] 2.16.8 40.1.268043.3.579.2.727 1945 Unknown [id number] 2.16.8 40.1.582252.3.579.2.72 1945 Unknown [id number] 2.16.8 40.1.926147.3.579.2.727 1945 Unknown [id number] 2.16.8 40.1.676164.3.579.2.72 1945 Unknown [id number] 2.16.8 40.1.228823.3.579.2.72 1945 Unknown [id number] 2.16.8 40.1.664956.3.579.2. 1945 Unknown [id number] 2.16.8 40.1.394751.3.579.2. 1945 Unknown [id number] 2.16.8 40.1.938452.3.579.2. 1945 Unknown [id number] 2.16.8 40.1.831496.3.579.2.72 1944 Unknown [id number] 2.16.8 40.1.866667.3.579.2. 1945 Unknown [id number] 2.16.8 40.1.190504.3.579.2.72 1945 Unknown [id number] 2.16.8 40.1.524613.3.579.2. 1945 Unknown [id number] 2.16.8 40.1.729507.3.579.2.72 1945 Unknown [id number] 2.16.8 40.1.024842.3.579.2. 1945 Unknown [id number] 2.16.8 40.1.748760.3.579.2.727 1945 Unknown [id number] 2.16.8 40.1.871718.3.579.27 1945 Unknown [id number] 2.16.8 40.1.673397.3.579.2.727 1945 Unknown [id number] 2.16.8 40.1.301575.3.579.2.727 Social History Date Type Detail Facility Start: 10-18-2023 Tobacco smoking status Never s moked tobacco (finding) [facility] Tobacco smoking status Never [facility] Sex Assigned At Male [facility] Start: 01-17-2024 End: 01-29-2024 Tobacco smoking status Light tobacco smoker (finding) [facility] Comment on above: patient smokes 03/29-1 ppd. Functional Status Date Assessment Result Facility 02-11-2024 Functional Status N/A [facility] 01-22-2024 Functional Status N/A [facility] 01-17-2024 Functional Status N/A [facility] Clinical Notes 10-25-2023 to 03-05-2024 LaboratoryLaboratoryLaboratoryLaboratory Note Date & Type Note Facility 03-05-2024 Note Urology Office/Clini c Note Chief Complaint discuss procedure HPI Staff 78yr old male pt here to discuss outlet procedure. PVR 01/22/24 - 997mL. S/p cysto 02/11/24. Catheter replaced after cysto. Previous Dx: acute urinary retention *Flomax 0.4mg qd- pt states the meds are not working pt states he has no feeling of having to urinate, and has not been able to urinate in weeks. pt does self cath 4x per day, but still does not having feeling of empty or full bladder. pt also states less output the last few days, he says he still drinks same amount of fluids with less out. PVR today was 25 cc. Output volume was 250cc History of Present Illness Tests reviewed: reviewed UA, CIC log, UCx I have reviewed the previous health record information and history for this patient from . I have reviewed and verified the staff HPI to be accurate for this encounter. There have been no associated fever, chills, flank pain, or blood in the urine. Review of Systems PHQ Score Initial Depression Screen Score: 0 SCORE ROS - Provider Constitutional: denies weight loss, denies hot flashes. Eyes: denies eye problems. Gastrointestinal: denies nausea, denies vomiting. Cardiovascular: denies chest pain or angina. Integumentary: no dryness Musculoskeletal: denies musculoskeletal symptoms. ENMT: denies otolaryngeal symptoms. Respiratory: no shortness of breath. Heme/Lymph: denies easy bleeding tendency, denies easy bruising tendency. Psychiatric: no confusion, no anxiety. Genitourinary: See HPI. Physical Exam Vitals & Measurements HR: 64(Peripheral) BP: 138/78 HT: 72 in HT: 184 cm WT: 65.5 kg WT: 144.403 lb BMI: 19.35 General Appearance: alert, no distress, well nourished, well developed male. Assessment/Plan 78yr old male pt here to discuss outlet procedure, last seen IO by NISREEN on 01/22/24. S/p cysto 02/11/24. Catheter replaced after cysto. 1. BPH with obstruction/lower urinary tract symptoms (N40.1: Benign prostatic hyperplasia with lower urinary tract symptoms) S/p cysto 02/11/24 - prostate was obstructed, mod-severe bilobar lat prostatomegaly, no median lobe, bladder was mildly trabeculated. Catheter replaced after cysto. Prior CT scan, prostate volume was about 35cc. Pt had previous taken Tamsulosin 0.4mg QD. UA today shows trace-intact blood and small leuks. UDS findings- 2L capacity, significantly delayed sensation 560 ml, unable to void. Discussed hypotonic bladder and risk of continued retention despite outlet procedure. Thorough discussion regarding BPH with hypotonic bladder, pathophysiology, procedures, and answered all of his questions. Pt inquired how the UroLift is done. Educated pt on how the UroLift procedure is done. Pt inquired about other outlet procedures that he could have other than the UroLift. Counseled pt on the risks and benefits of the outlet procedures. Counseled pt on the timeframe of the UroLift procedure. Offered to send Valium if he does not think he would be able to tolerate the procedure. Pt states that he would not like this. Follow up when ready to schedule procedure. All questions/concerns were discussed. Pt to call the office if he encounters any issues prior. Pt acknowledges understanding. -Consider UroLift procedure and do research about procedure. Call our office if/when he is ready to schedule the UroLift. Declines valium or pain pills. Will need abx. Will have cath post procedure 5-7 days -See #2 Ordered: 73429 Measure Post Void residual urine and/or bladder capacity by US- non-imaging Urnls Dip Stick Auto w/o Microscopy POC 33360 2. Urinary retention (R33.9: Retention of urine, unspecified) PVR (cc) 01/22/24 - 997 03/05/24 - , after CIC. Proper technique Pt states he has no feeling of having to urinate, and has not been able to urinate in weeks. Pt does self cath 4x per day, but still does not having feeling of empty or full bladder. Pt also states less output the last few days, he says he still drinks same amount of fluids with less out. Per voiding diary, volume were 250-500cc on average, sometimes 600-1200, rare. Last self cath was done at 8am, pt cathed himself and had a urinary output of about 250cc, PVR 26cc. Counseled pt on the proper technique to CIC. Advised pt that he is emptying well. Advised pt that his bladder does not work on its own. Pt inquired how the bladder works and how the sensation effected how he urinated. Counseled pt on how the bladder contracts. Discussed the tx options regarding the pt's bladder and prostate. -Discussed SNM after an outlet procedure. Counseled pt on how try to train his bladder to operate properly again. Advised pt to try to have the bladder at a lower volume to allow his bladder to shrink back to normal. Advised pt that it will take time. Pt inquired if his blood levels could effect his bladder working, if the blood levels were too low. Advised pt to discuss this with his PCP. -Cont CIC. -See #1 3. Prostate cancer sc (more content not included)... [facility] Comment on above: Result Comment: Elec tronically Signed By: Claudy FLOOD, Kelly Garsia\.br\Date and Time Signed: 03/05/24 12:58 EST\.br\Electronically Co-Signed By: Alyson Fraser\.br\Date and Time Co-Signed: 03/05/24 12:39 EST 03-05-2024 Note Patient Education Oncology Prostate Cancer Screening Prostate cancer screening is testing that is done to check for the presence of prostate cancer in men. The prostate gland is a walnut-sized gland that is located below the bladder and in front of the rectum in males. The function of the prostate is to add fluid to semen during ejaculation. Prostate cancer is one of the most common types of cancer in men. Who should have prostate cancer screening? Screening recommendations vary based on age and other risk factors, as well as between the professional organizations who make the recommendations. In general, screening is recommended if: ??? You are age 50 to 70 and have an average risk for prostate cancer. You should talk with your health care provider about your need for screening and how often screening should be done. Because most prostate cancers are slow growing and will not cause , screening in this age group is generally reserved for men who have a 10- to 15-year life expectancy. ??? You are younger than age 50, and you have these risk factors: ? Having a father, brother, or uncle who has been diagnosed with prostate cancer. The risk is higher if your family member's cancer occurred at an early age or if you have multiple family members with prostate cancer at an early age. ? Being a male who is Black or is of [place] or sub-Saharan descent. In general, screening is not recommended if: ??? You are younger than age 40. ??? You are between the ages of 40 and 49 and you have no risk factors. ??? You are 70 years of age or older. At this age, the risks that screening can cause are greater than the benefits that it may provide. If you are at high risk for prostate cancer, your health care provider may recommend that you have screenings more often or that you start screening at a younger age. How is screening for prostate cancer done? The recommended prostate cancer screening test is a blood test called the prostate-specific antigen (PSA) test. PSA is a protein that is made in the prostate. As you age, your prostate naturally produces more PSA. Abnormally high PSA levels may be caused by: ??? Prostate cancer. ??? An enlarged prostate that is not caused by cancer (benign prostatic hyperplasia, or BPH). This condition is very common in older men. ??? A prostate gland infection (prostatitis) or urinary tract infection. ??? Certain medicines such as male hormones (like testosterone) or other medicines that raise testosterone levels. A rectal exam may be done as part of prostate cancer screening to help provide information about the size of your prostate gland. When a rectal exam is performed, it should be done after the PSA level is drawn to avoid any effect on the results. Depending on the PSA results, you may need more tests, such as: ??? A physical exam to check the size of your prostate gland, if not done as part of screening. ??? Blood and imaging tests. ??? A procedure to remove tissue samples from your prostate gland for testing (biopsy). This is the only way to know for certain if you have prostate cancer. What are the benefits of prostate cancer screening? Screening can help to identify cancer at an early stage, before symptoms start and when the cancer can be treated more easily. ??? There is a small chance that screening may lower your risk of dying from prostate cancer. The chance is small because prostate cancer is a slow-growing cancer, and most men with prostate cancer from a different cause. What are the risks of prostate cancer screening? The main risk of prostate cancer screening is diagnosing and treating prostate cancer that would never have caused any symptoms or problems. This is called overdiagnosisand overtreatment. PSA screening cannot tell you if your PSA is high due to cancer or a different cause. A prostate biopsy is the only procedure to diagnose prostate cancer. Even the results of a biopsy may not tell you if your cancer needs to be treated. Slow-growing prostate cancer may not need any treatment other than monitoring, so diagnosing and treating it may cause unnecessary stress or other side effects. Questions to ask your health care provider ??? When should I start prostate cancer screening? What is my risk for prostate cancer? How often do I need screening? What type of screening tests do I need? How do I get my test results? What do my results mean? Do I need treatment? Where to find more information ??? The [place] Cancer Society: www.cancer.org ??? [place] Urological Association: www.auanet.org Contact a health care provider if: ??? You have difficulty urinating. ??? You have pain when you urinate or ejaculate. ??? You have blood in your urine or semen. ??? You have pain in your back or in the area of your prostate. Summary ??? Prostate cancer is a common type of cancer in men. The prostate gland (more content not included)... [facility] 02-11-2024 Hospital Discharge instructions Patient Education 02/11/2024 12:21:33 [facility] - Cystoscopy Discharge Instructions (CUSTOM) Cystoscopy Voiding after the procedure: there may be some pain, burning, urgency, frequency and blood tinged urine following the procedure. These symptoms usually resolve within 2-5 days. Drink the amount of fluid it takes to keep the urine pink to yellow or clear in color. Drinking enough water and fluids will help to ease any discomfort after your procedure. If you are having problems that seem out of the ordinary, please call. If unable to contact your physician and you feel it is an emergency, go to the nearest emergency room or call 911 Diet you may resume your normal diet. Activity you may resume your normal activities Call if you have a fever over 100 degrees. Follow Up Care 01/23/2024 09:29:37 With:Kelly Loco Address:Unknown When: Unknown Comments:Office to schedule follow up 1): Nursing visit for CIC teaching, 2) Follow up with Dr. Loco to discuss outlet procedure [facility] 02-11-2024 Note Patient Education Cystoscopy ??? Voiding after the procedure: there may be some pain, burning, urgency, frequency and blood tinged urine following the procedure. These symptoms usually resolve within 2-5 days. Drink the amount of fluid it takes to keep the urine pink to yellow or clear in color. Drinking enough water and fluids will help to ease any discomfort after your procedure. ??? If you are having problems that seem out of the ordinary, please call. ??? If unable to contact your physician and you feel it is an emergency, go to the nearest emergency room or call 911 ??? Diet ??? you may resume your normal diet. ??? Activity ??? you may resume your normal activities ??? Call if you have a fever over 100 degrees. [facility] 01-29-2024 Note Patient Education Urology Benign Prostatic Hyperplasia Benign prostatic hyperplasia (BPH) is an enlarged prostate gland that is caused by the normal aging process. The prostate may get bigger as a man gets older. The condition is not caused by cancer. The prostate is a walnut-sized gland that is involved in the production of semen. It is located in front of the rectum and below the bladder. The bladder stores urine. The urethra carries stored urine out of the body. An enlarged prostate can press on the urethra. This can make it harder to pass urine. The buildup of urine in the bladder can cause infection. Back pressure and infection may progress to bladder damage and kidney (renal) failure. What are the causes? This condition is part of the normal aging process. However, not all men develop problems from this condition. If the prostate enlarges away from the urethra, urine flow will not be blocked. If it enlarges toward the urethra and compresses it, there will be problems passing urine. What increases the risk? This condition is more likely to develop in men older than 50 years. What are the signs or symptoms? Symptoms of this condition include: ??? Getting up often during the night to urinate. ??? Needing to urinate frequently during the day. ??? Difficulty starting urine flow. ??? Decrease in size and strength of your urine stream. ??? Leaking (dribbling) after urinating. ??? Inability to pass urine. This needs immediate treatment. ??? Inability to completely empty your bladder. ??? Pain when you pass urine. This is more common if there is also an infection. ??? Urinary tract infection (UTI). How is this diagnosed? This condition is diagnosed based on your medical history, a physical exam, and your symptoms. Tests will also be done, such as: ??? A post-void bladder scan. This measures any amount of urine that may remain in your bladder after you finish urinating. ??? A digital rectal exam. In a rectal exam, your health care provider checks your prostate by putting a lubricated, gloved finger into your rectum to feel the back of your prostate gland. This exam detects the size of your gland and any abnormal lumps or growths. ??? An exam of your urine (urinalysis). ??? A prostate specific antigen (PSA) screening. This is a blood test used to screen for prostate cancer. ??? An ultrasound. This test uses sound waves to electronically produce a picture of your prostate gland. Your health care provider may refer you to a specialist in kidney and prostate diseases (urologist). How is this treated? Once symptoms begin, your health care provider will monitor your condition (active surveillance or watchful waiting). Treatment for this condition will depend on the severity of your condition. Treatment may include: ??? Observation and yearly exams. This may be the only treatment needed if your condition and symptoms are mild. ??? Medicines to relieve your symptoms, including: ? Medicines to shrink the prostate. ? Medicines to relax the muscle of the prostate. ??? Surgery in severe cases. Surgery may include: ? Prostatectomy. In this procedure, the prostate tissue is removed completely through an open incision or with a laparoscope or robotics. ? Transurethral resection of the prostate (TURP). In this procedure, a tool is inserted through the opening at the tip of the penis (urethra). It is used to cut away tissue of the inner core of the prostate. The pieces are removed through the same opening of the penis. This removes the blockage. ? Transurethral incision (TUIP). In this procedure, small cuts are made in the prostate. This lessens the prostate's pressure on the urethra. ? Transurethral microwave thermotherapy (TUMT). This procedure uses microwaves to create heat. The heat destroys and removes a small amount of prostate tissue. ? Transurethral needle ablation (TUNA). This procedure uses radio frequencies to destroy and remove a small amount of prostate tissue. ? Interstitial laser coagulation (ILC). This procedure uses a laser to destroy and remove a small amount of prostate tissue. ? Transurethral electrovaporization (TUVP). This procedure uses electrodes to destroy and remove a small amount of prostate tissue. ? Prostatic urethral lift. This procedure inserts an implant to push the lobes of the prostate away from the urethra. Follow these instructions at home: ??? Take fjyv-ddt-gidpknh and prescription medicines only as told by your health care provider. ??? Monitor your symptoms for any changes. Contact your health care provider with any changes. ??? Avoid drinking large amounts of liquid before going to bed or out in public. ??? Avoid or reduce how much caffeine or alcohol you drink. ??? Give yourself time when you urinate. ??? Keep all follow-up visits. This is important. Contact a health care provider if: ??? You have unexplained back pain. ??? Your symptoms do not get (more content not included)... [facility] 01-29-2024 Note Patient Education Pulmonary Medicine Health Risks of Smoking Smoking tobacco is very bad for your health. Tobacco smoke contains many toxic chemicals that can damage every part of your body. Secondhand smoke can be harmful to those around you. Tobacco or nicotine use can cause many long-term (chronic) diseases. Smoking is difficult to quit because a chemical in tobacco, called nicotine, causes addiction or dependence. When you smoke and inhale, nicotine is absorbed quickly into your bloodstream through your lungs. Both inhaled and non-inhaled nicotine may be addictive. How can quitting affect me? There are health benefits of quitting smoking. Some benefits happen right away and others take time. Benefits may include: ??? Blood flow, blood pressure, heart rate, and lung capacity may begin to improve. However, any lung damage that has already occurred cannot be repaired. ??? Respiratory symptoms from smoking, such as nasal congestion and cough, may improve over time. ??? Your risk of heart disease, stroke, and cancer is reduced. ??? The overall quality of your health may improve. ??? You may save money, as you will not spend money on tobacco products and may spend less money on smoking-related health issues. What can increase my risk? Smoking harms nearly every organ in the body. People who smoke tobacco have a shorter life expectancy and an increased risk of many serious medical problems. These include: ??? More respiratory infections, such as colds and pneumonia. ??? Cancer. ??? Heart disease. ??? Stroke. ??? Chronic respiratory diseases. ??? Delayed wound healing and increased risk of complications during surgery. ??? Problems with reproduction, , and childbirth, such as infertility, early (premature) births, stillbirths, and defects. Secondhand smoke exposure to children increases the risk of: ??? Sudden syndrome (SIDS). ??? Infections in the nose, throat, or airways (respiratory infections). ??? Chronic respiratory symptoms. What actions can I take to quit? Smoking is an addiction that affects both your body and your mind, and long-time habits can be hard to change. Your health care provider can recommend: ??? Nicotine replacement products, such as patches, gum, and nasal sprays. Use these products only as directed. Do not replace cigarette smoking with electronic cigarettes, which are commonly called e-cigarettes. The safety of e-cigarettes is not known, and some may contain harmful chemicals. ??? Programs and community resources, which may include group support, education, or talk therapy. ??? Prescription medicines to help reduce cravings. ??? A combination of two or more quit methods, which may increase the success of quitting. Where to find support Follow the recommendations from your health care provider about support groups and other assistance. You can also visit: ??? U[place] Department of Health and Human Services: www.3TIERfree.gov ??? [place] Lung Association: www.freedomfromsmoking.org ??? [place] Heart Association: www.heart.org Where to find more information ??? Centers for Disease Control and Prevention: www.cdc.gov ??? World Health Organization: www.who.int Summary ??? Smoking tobacco is very bad for your health. Tobacco smoke contains many toxic chemicals that can damage every part of the body. ??? Smoking is difficult to quit because a chemical in tobacco, called nicotine, causes addiction or dependence. ??? There are immediate and long-term health benefits of quitting smoking. ??? A combination of two or more quit methods may increase the success of quitting. This information is not intended to replace advice given to you by your health care provider. Make sure you discuss any questions you have with your health care provider. Document Revised: 03/14/2022 Document Reviewed: 03/14/2022 [employer] Patient Education ? 2023 [employer] Steps to Quit Smoking Smoking tobacco is the leading cause of preventable . It can affect almost every organ in the body. Smoking puts you and those around you at risk for developing many serious chronic diseases. Quitting smoking can be very challenging. Do not get discouraged if you are not successful the first time. Some people need to make many attempts to quit before they achieve long-term success. Do your best to stick to your quit plan, and talk with your health care provider if you have any questions or concerns. How do I get ready to quit? When you decide to quit smoking, create a plan to help you succeed. Before you quit: ??? Pick a date to quit. Set a date within the next 2 weeks to give you time to prepare. ??? Write down the reasons why you are quitting. Keep this list in places where you will see it often. ??? Tell your family, friends, and co-workers that you are quitting. Support from people you are close to can make quitting easier (more content not included)... [facility] 01-22-2024 Hospital Discharge instructions Patient Education 01/22/2024 15:53:04 Acute Urinary Retention, Male Acute Urinary Retention, Male Acute urinary retention is a condition in which a person is unable to pass urine or can only pass a little urine. This condition can happen suddenly and last for a short time. If left untreated, it can become long-term (chronic) and result in kidney damage or other serious complications. What are the causes? This condition may be caused by: Obstruction or narrowing of the tube that drains the bladder (urethra). This may be caused by surgery, problems with nearby organs, or injury to the bladder or urethra. Problems with the nerves in the bladder. Tumors in the area of the pelvis, bladder, or urethra. Certain medicines. Bladder or urinary tract infection. Constipation. What increases the risk? This condition is more likely to develop in older men. As men age, their prostate may become larger and may start to press or squeeze on the bladder or the urethra. Other chronic health conditions can increase the risk of acute urinary retention. These include: Diseases such as multiple sclerosis. Spinal cord injuries. Diabetes. Degenerative cognitive conditions, such as delirium or dementia. Psychological conditions. A man may hold his urine due to trauma or because he does not want to use the bathroom. What are the signs or symptoms? Symptoms of this condition include: Trouble urinating. Pain in the lower abdomen. How is this diagnosed? This condition is diagnosed based on a physical exam and your medical history. You may also have other tests, including: An ultrasound of the bladder or kidneys or both. Blood tests. A urine analysis. Additional tests may be needed, such as a CT scan, MRI, and kidney or bladder function tests. How is this treated? Treatment for this condition may include: Medicines. Placing a thin, sterile tube (catheter) into the bladder to drain urine out of the body. This is called an indwelling urinary catheter. After it is inserted, the catheter is held in place with a small balloon that is filled with sterile water. Urine drains from the catheter into a collection bag outside of the body. Behavioral therapy. Treatment for other conditions. If needed, you may be treated in the hospital for kidney function problems or to manage other complications. Follow these instructions at home: Medicines Take ffpq-oyr-themstv and prescription medicines only as told by your health care provider. Avoid certain medicines, such as decongestants, antihistamines, and some prescription medicines. Do not take any medicine unless your health care provider approves. If you were prescribed an antibiotic medicine, take it as told by your health care provider. Do not stop using the antibiotic even if you start to feel better. General instructions Do not use any products that contain nicotine or tobacco. These products include cigarettes, chewing tobacco, and vaping devices, such as e-cigarettes. If you need help quitting, ask your health care provider. Drink enough fluid to keep your urine pale yellow. If you have an indwelling urinary catheter, follow the instructions from your health care provider. Monitor any changes in your symptoms. Tell your health care provider about any changes. If instructed, monitor your blood pressure at home. Report changes as told by your health care provider. Keep all follow-up visits. This is important. Contact a health care provider if: You have uncomfortable bladder contractions that you cannot control (spasms). You leak urine with the spasms. Get help right away if: You have chills or a fever. You have blood in your urine. You have a catheter and the following happens: ?Your catheter stops draining urine. ?Your catheter falls out. Summary Acute urinary retention is a condition in which a person is unable to pass urine or can only pass a little urine. If left untreated, this condition can result in kidney damage or other serious complications. An enlarged prostate may cause this condition. As men age, their prostate gland may become larger and may press or squeeze on the bladder or the urethra. Treatment for this condition may include medicines and placement of an indwelling urinary catheter. Monitor any changes in your symptoms. Tell your health care provider about any changes. This information is not intended to replace advice given to you by your health care provider. Make sure you discuss any questions you have with your health care provider. Document Revised: 12/01/2020 Document Reviewed: 12/01/2020 [employer] Patient Education 2023 [employer]. Follow Up Care 01/17/2024 13:52:19 With:[facility] Address: [address] 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 This condition can happen suddenly and last for a short time. If left untreated, it can become long-term (chronic) and result in kidney damage or other serious complications. What are the causes? This condition may be caused by: ??? Obstruction or narrowing of the tube that drains the bladder (urethra). This may be caused by surgery, problems with nearby organs, or injury to the bladder or urethra. ??? Problems with the nerves in the bladder. ??? Tumors in the area of the pelvis, bladder, or urethra. ??? Certain medicines. ??? Bladder or urinary tract infection. ??? Constipation. What increases the risk? This condition is more likely to develop in older men. As men age, their prostate may become larger and may start to press or squeeze on the bladder or the urethra. Other chronic health conditions can increase the risk of acute urinary retention. These include: ??? Diseases such as multiple sclerosis. ??? Spinal cord injuries. ??? Diabetes. ??? Degenerative cognitive conditions, such as delirium or dementia. ??? Psychological conditions. A man may hold his urine due to trauma or because he does not want to use the bathroom. What are the signs or symptoms? Symptoms of this condition include: ??? Trouble urinating. ??? Pain in the lower abdomen. How is this diagnosed? This condition is diagnosed based on a physical exam and your medical history. You may also have other tests, including: ??? An ultrasound of the bladder or kidneys or both. ??? Blood tests. ??? A urine analysis. ??? Additional tests may be needed, such as a CT scan, MRI, and kidney or bladder function tests. How is this treated? Treatment for this condition may include: ??? Medicines. ??? Placing a thin, sterile tube (catheter) into the bladder to drain urine out of the body. This is called an indwelling urinary catheter. After it is inserted, the catheter is held in place with a small balloon that is filled with sterile water. Urine drains from the catheter into a collection bag outside of the body. ??? Behavioral therapy. ??? Treatment for other conditions. If needed, you may be treated in the hospital for kidney function problems or to manage other complications. Follow these instructions at home: Medicines ??? Take qiat-ozk-ajautal and prescription medicines only as told by your health care provider. Avoid certain medicines, such as decongestants, antihistamines, and some prescription medicines. Do not take any medicine unless your health care provider approves. ??? If you were prescribed an antibiotic medicine, take it as told by your health care provider. Do not stop using the antibiotic even if you start to feel better. General instructions ??? Do not use any products that contain nicotine or tobacco. These products include cigarettes, chewing tobacco, and vaping devices, such as e-cigarettes. If you need help quitting, ask your health care provider. ??? Drink enough fluid to keep your urine pale yellow. ??? If you have an indwelling urinary catheter, follow the instructions from your health care provider. ??? Monitor any changes in your symptoms. Tell your health care provider about any changes. ??? If instructed, monitor your blood pressure at home. Report changes as told by your health care provider. ??? Keep all follow-up visits. This is important. Contact a health care provider if: ??? You have uncomfortable bladder contractions that you cannot control (spasms). ??? You leak urine with the spasms. Get help right away if: ??? You have chills or a fever. ??? You have blood in your urine. ??? You have a catheter and the following happens: ? Your catheter stops draining urine. ? Your catheter falls out. Summary ??? Acute urinary retention is a condition in which a person is unable to pass urine or can only pass a little urine. If left untreated, this condition can result in kidney damage or other serious complications. ??? An enlarged prostate may cause this condition. As men age, their prostate gland may become larger and may press or squeeze on the bladder or the urethra. ??? Treatment for this condition may include medicines and placement of an indwelling urinary catheter. ??? Monitor any changes in your symptoms. Tell your health care provider about any changes. This information is not intended to replace advice given to you by your health care provider. Make sure you discuss any questions you have with your health care provider. Document Revised: 12/01/2020 Document Reviewed: 12/01/2020 [employer] Patient Education ? 2023 [employer]. [facility] 01-17-2024 Hospital Discharge instructions Patient Education 01/17/2024 14:21:47 Acute Urinary Retention, Male Acute Urinary Retention, Male Acute urinary retention is a condition in which a person is unable to pass urine or can only pass a little urine. This condition can happen suddenly and last for a short time. If left untreated, it can become long-term (chronic) and result in kidney damage or other serious complications. What are the causes? This condition may be caused by: Obstruction or narrowing of the tube that drains the bladder (urethra). This may be caused by surgery, problems with nearby organs, or injury to the bladder or urethra. Problems with the nerves in the bladder. Tumors in the area of the pelvis, bladder, or urethra. Certain medicines. Bladder or urinary tract infection. Constipation. What increases the risk? This condition is more likely to develop in older men. As men age, their prostate may become larger and may start to press or squeeze on the bladder or the urethra. Other chronic health conditions can increase the risk of acute urinary retention. These include: Diseases such as multiple sclerosis. Spinal cord injuries. Diabetes. Degenerative cognitive conditions, such as delirium or dementia. Psychological conditions. A man may hold his urine due to trauma or because he does not want to use the bathroom. What are the signs or symptoms? Symptoms of this condition include: Trouble urinating. Pain in the lower abdomen. How is this diagnosed? This condition is diagnosed based on a physical exam and your medical history. You may also have other tests, including: An ultrasound of the bladder or kidneys or both. Blood tests. A urine analysis. Additional tests may be needed, such as a CT scan, MRI, and kidney or bladder function tests. How is this treated? Treatment for this condition may include: Medicines. Placing a thin, sterile tube (catheter) into the bladder to drain urine out of the body. This is called an indwelling urinary catheter. After it is inserted, the catheter is held in place with a small balloon that is filled with sterile water. Urine drains from the catheter into a collection bag outside of the body. Behavioral therapy. Treatment for other conditions. If needed, you may be treated in the hospital for kidney function problems or to manage other complications. Follow these instructions at home: Medicines Take cgig-wvc-pxnkjiz and prescription medicines only as told by your health care provider. Avoid certain medicines, such as decongestants, antihistamines, and some prescription medicines. Do not take any medicine unless your health care provider approves. If you were prescribed an antibiotic medicine, take it as told by your health care provider. Do not stop using the antibiotic even if you start to feel better. General instructions Do not use any products that contain nicotine or tobacco. These products include cigarettes, chewing tobacco, and vaping devices, such as e-cigarettes. If you need help quitting, ask your health care provider. Drink enough fluid to keep your urine pale yellow. If you have an indwelling urinary catheter, follow the instructions from your health care provider. Monitor any changes in your symptoms. Tell your health care provider about any changes. If instructed, monitor your blood pressure at home. Report changes as told by your health care provider. Keep all follow-up visits. This is important. Contact a health care provider if: You have uncomfortable bladder contractions that you cannot control (spasms). You leak urine with the spasms. Get help right away if: You have chills or a fever. You have blood in your urine. You have a catheter and the following happens: ?Your catheter stops draining urine. ?Your catheter falls out. Summary Acute urinary retention is a condition in which a person is unable to pass urine or can only pass a little urine. If left untreated, this condition can result in kidney damage or other serious complications. An enlarged prostate may cause this condition. As men age, their prostate gland may become larger and may press or squeeze on the bladder or the urethra. Treatment for this condition may include medicines and placement of an indwelling urinary catheter. Monitor any changes in your symptoms. Tell your health care provider about any changes. This information is not intended to replace advice given to you by your health care provider. Make sure you discuss any questions you have with your health care provider. Document Revised: 12/01/2020 Document Reviewed: 12/01/2020 [employer] Patient Education 2023 [employer]. Follow Up Care 01/16/2024 14:51:39 With:[facility] Address: [address] 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 This condition can happen suddenly and last for a short time. If left untreated, it can become long-term (chronic) and result in kidney damage or other serious complications. What are the causes? This condition may be caused by: ??? Obstruction or narrowing of the tube that drains the bladder (urethra). This may be caused by surgery, problems with nearby organs, or injury to the bladder or urethra. ??? Problems with the nerves in the bladder. ??? Tumors in the area of the pelvis, bladder, or urethra. ??? Certain medicines. ??? Bladder or urinary tract infection. ??? Constipation. What increases the risk? This condition is more likely to develop in older men. As men age, their prostate may become larger and may start to press or squeeze on the bladder or the urethra. Other chronic health conditions can increase the risk of acute urinary retention. These include: ??? Diseases such as multiple sclerosis. ??? Spinal cord injuries. ??? Diabetes. ??? Degenerative cognitive conditions, such as delirium or dementia. ??? Psychological conditions. A man may hold his urine due to trauma or because he does not want to use the bathroom. What are the signs or symptoms? Symptoms of this condition include: ??? Trouble urinating. ??? Pain in the lower abdomen. How is this diagnosed? This condition is diagnosed based on a physical exam and your medical history. You may also have other tests, including: ??? An ultrasound of the bladder or kidneys or both. ??? Blood tests. ??? A urine analysis. ??? Additional tests may be needed, such as a CT scan, MRI, and kidney or bladder function tests. How is this treated? Treatment for this condition may include: ??? Medicines. ??? Placing a thin, sterile tube (catheter) into the bladder to drain urine out of the body. This is called an indwelling urinary catheter. After it is inserted, the catheter is held in place with a small balloon that is filled with sterile water. Urine drains from the catheter into a collection bag outside of the body. ??? Behavioral therapy. ??? Treatment for other conditions. If needed, you may be treated in the hospital for kidney function problems or to manage other complications. Follow these instructions at home: Medicines ??? Take kaiu-lyq-thrweor and prescription medicines only as told by your health care provider. Avoid certain medicines, such as decongestants, antihistamines, and some prescription medicines. Do not take any medicine unless your health care provider approves. ??? If you were prescribed an antibiotic medicine, take it as told by your health care provider. Do not stop using the antibiotic even if you start to feel better. General instructions ??? Do not use any products that contain nicotine or tobacco. These products include cigarettes, chewing tobacco, and vaping devices, such as e-cigarettes. If you need help quitting, ask your health care provider. ??? Drink enough fluid to keep your urine pale yellow. ??? If you have an indwelling urinary catheter, follow the instructions from your health care provider. ??? Monitor any changes in your symptoms. Tell your health care provider about any changes. ??? If instructed, monitor your blood pressure at home. Report changes as told by your health care provider. ??? Keep all follow-up visits. This is important. Contact a health care provider if: ??? You have uncomfortable bladder contractions that you cannot control (spasms). ??? You leak urine with the spasms. Get help right away if: ??? You have chills or a fever. ??? You have blood in your urine. ??? You have a catheter and the following happens: ? Your catheter stops draining urine. ? Your catheter falls out. Summary ??? Acute urinary retention is a condition in which a person is unable to pass urine or can only pass a little urine. If left untreated, this condition can result in kidney damage or other serious complications. ??? An enlarged prostate may cause this condition. As men age, their prostate gland may become larger and may press or squeeze on the bladder or the urethra. ??? Treatment for this condition may include medicines and placement of an indwelling urinary catheter. ??? Monitor any changes in your symptoms. Tell your health care provider about any changes. This information is not intended to replace advice given to you by your health care provider. Make sure you discuss any questions you have with your health care provider. Document Revised: 12/01/2020 Document Reviewed: 12/01/2020 [employer] Patient Education ? 2023 [employer]. [facility] 10-30-2023 Note Nurse Consultation N ote Reason for Visit Here for urine collection to send for culture Medications Bactrim D.S. 800 mg-160 mg Tab, 1 tab(s), Oral, BID Allergies penicillin (Rash) [facility] 10-25-2023 Note Nurse Consultation N ote Reason for Visit Here for urine collection to send in for a culture Medications Bactrim D.S. 800 mg-160 mg Tab, 1 tab(s), Oral, BID Allergies penicillin (Rash) [facility] Evaluation + Plan note Future Appointments Appointment Date:01/17/2024 09:30:00 AM Scheduled Provider: Location:[facility] Appointment Type: Medicare Wellness Subsequent Appointment Date:01/17/2024 10:30:00 AM Scheduled Provider:Scott Waller MD Location:[facility] Appointment Type: Open Diagnostic Tests PendingUrine Culture 10/18/23 [facility] Evaluation + Plan note Future Appointments Appointment Date:01/17/2024 09:30:00 AM Scheduled Provider: Location:[facility] Appointment Type: Medicare Wellness Subsequent Appointment Date:01/17/2024 10:30:00 AM Scheduled Provider:Scott Waller MD Location:[facility] Appointment Type:FM Open Diagnostic Tests PendingUrine Culture 10/25/23 [facility] Evaluation + Plan note Future Appointments Appointment Date:01/17/2024 09:30:00 AM Scheduled Provider: Location:[facility] Appointment Type:FM Medicare Wellness Subsequent Appointment Date:01/17/2024 10:30:00 AM Scheduled Provider:Scott Waller MD Location:[facility] Appointment Type:FM Open Diagnostic Tests PendingUrine Culture 10/30/23 Future Scheduled TestsUrinalysis with Micro 10/30/23 [facility] Evaluation + Plan note Future Appointments Appointment Date:01/17/2024 09:30:00 AM Scheduled Provider: Location:[facility] Appointment Type: Medicare Wellness Subsequent Appointment Date:01/17/2024 10:30:00 AM Scheduled Provider:Scott Waller MD Location:[facility] Appointment Type:FM Open Diagnostic Tests PendingUrine Culture 11/14/23 [facility] Evaluation + Plan note Future Appointments Appointment Date:01/17/2024 09:30:00 AM Scheduled Provider: Location:[facility] Appointment Type: Medicare Wellness Subsequent Appointment Date:01/17/2024 10:30:00 AM Scheduled Provider:Scott Waller MD Location:[facility] Appointment Type:FM Open [facility] Evaluation + Plan note Future Appointments Appointment Date:01/21/2024 09:30:00 AM Scheduled Provider: [facility] Appointment Type:URO Nurse Visit Appointment Date:01/22/2024 10:00:00 AM Scheduled Provider: [facility] Appointment Type:URO Nurse Visit Appointment Date:01/29/2024 02:30:00 PM Scheduled Provider: Location:[facility] Appointment Type: Medicare Wellness Subsequent Appointment Date:01/29/2024 03:30:00 PM Scheduled Provider:Scott Waller MD Location:[facility] Appointment Type: Open [facility] Evaluation + Plan note Future Appointments Appointment Date:01/29/2024 02:30:00 PM Scheduled Provider: Location:[facility] Appointment Type:FM Medicare Wellness Subsequent Appointment Date:01/29/2024 03:30:00 PM Scheduled Provider:Scott Waller MD Location:[facility] Appointment Type: Open [facility] Evaluation + Plan note Future Appointments Appointment Date:02/12/2024 02:30:00 PM Scheduled Provider: Location:[facility] Appointment Type:URO Nurse Visit Appointment Date:03/12/2024 10:15:00 AM Scheduled Provider:Kelly Loco MD Location:[facility] Appointment Type:URO Office Visit Appointment Date:01/29/2025 02:30:00 PM Scheduled Provider: Location:[facility] Appointment Type: Medicare Wellness Subsequent Future Scheduled TestsLipid Panel 01/29/24 [facility] Evaluation + Plan note Future Appointments Appointment Date:03/05/2024 11:00:00 AM Scheduled Provider:Kelly Loco MD Location:[facility] Appointment Type:URO Office Visit Appointment Date:03/12/2024 10:15:00 AM Scheduled Provider:Kelly Loco MD Location:[facility] Appointment Type:URO Office Visit Appointment Date:01/29/2025 02:30:00 PM Scheduled Provider: Location:[facility] Appointment Type: Medicare Wellness Subsequent Future Scheduled TestsLipid Panel 01/29/24 [facility] Evaluation + Plan note Future Appointments Appointment Date:03/05/2024 11:00:00 AM Scheduled Provider:Kelly Loco MD Location:[facility] Appointment Type:URO Office Visit Appointment Date:03/12/2024 10:15:00 AM Scheduled Provider:Kelly Loco MD Location:[facility] Appointment Type:URO Office Visit Appointment Date:01/29/2025 02:30:00 PM Scheduled Provider: [facility] Appointment Type:FM Medicare Wellness Subsequent Diagnostic Tests PendingUrine Culture 02/19/24 Future Scheduled TestsLipid Panel 01/29/24 [facility] Hospital course Narrative No data available for this section [facility] Hospital Discharge instructions No data available for this section [facility] Progress note No data available for this section [facility] Summary Purpose Family History No Family History Records Found Advance Directives No Advanced Directives Records FoundNo Advanced Directives Records FoundNo Advanced Directives Records FoundNo Advanced Directives Records FoundNo Advanced Directives Records FoundNo Advanced Directives Records FoundNo Advanced Directives Records FoundNo Advanced Directives Records FoundNo Advanced Directives Records FoundNo Advanced Directives Records FoundNo Advanced Directives Records FoundNo Advanced Directives Records FoundNo Advanced Directives Records Found Additional Source Comments Patient Care team informatio n (unrecognized section and content) Personnel Name: Scott Waller MD Address: Address: [address] [place] [address] Personnel Name: Scott Waller MD Address: Address: [address] [place] [address] Personnel Name: Scott Waller MD Address: Address: [address] [place] [address] Personnel Name: Scott Waller MD Address: Address: [address] [place] [address] Personnel Name: Scott Waller MD Address: Address: [address] [place] [address] Personnel Name: Scott Waller MD Address: Address: [address] [place] [address] Personnel Name: Scott Waller MD Address: Address: [address] [place] [address] Personnel Name: Scott Waller MD Address: Address: [facility] [address] Personnel Name: Scott Waller MD Address: Address: [facility] [address] Personnel Name: Scott Waller MD Address: Address: [facility] Personnel Name: Scott Waller MD Address: Address: [address] [place] [address] (unrecognized sect ion and content) No Status Records FoundNo Status Records FoundNo Status Records FoundNo Status Records FoundNo Status Records FoundNo Status Records FoundNo Status Records FoundNo Status Records FoundNo Status Records FoundNo Status Records FoundNo Status Records FoundNo Status Records FoundNo Status Records Found INFORMATION SOURCE (unrecogn ized section and content) DATE CREATED AUTHOR 10/20/2023 [facility] DATE CREATED AUTHOR AUTHOR'S ORGANIZ ATION 10/27/2023 [facility] DATE CREATED AUTHOR AUTHOR'S ORGANIZ ATION 10/29/2023 [facility] DATE CREATED AUTHOR AUTHOR'S ORGANIZ ATION 11/04/2023 [facility] DATE CREATED AUTHOR AUTHOR'S ORGANIZ ATION 11/08/2023 [facility] DATE CREATED AUTHOR AUTHOR'S ORGANIZ ATION 11/15/2023 [facility] DATE CREATED AUTHOR AUTHOR'S ORGANIZ ATION 11/19/2023 [facility] DATE CREATED AUTHOR AUTHOR'S ORGANIZ ATION 12/21/2023 [facility] DATE CREATED AUTHOR AUTHOR'S ORGANIZ ATION 02/15/2024 [facility] DATE CREATED AUTHOR AUTHOR'S ORGANIZ ATION 02/23/2024 [facility] DATE CREATED AUTHOR AUTHOR'S ORGANIZ ATION 02/25/2024 [facility] DATE CREATED AUTHOR AUTHOR'S ORGANIZ ATION 03/05/2024 [facility] FOR RECORDS PERTAINING TO PATIENTS WHO ARE OR HAVE BEEN ENROLLED IN A CHEMICAL DEPENDENCY/SUBSTANCEABUSE PROGRAM, SOME INFORMATION MAY BE OMITTED. This clinical summary was aggregated from multiple sources. Caution should be exercised in using it in the provision of clinical care. This summary normalizes information from multiple sources, and as a consequence, information in this document may materially change the coding, format and clinical context of patient data. In addition, data may be omitted in some cases. CLINICAL DECISIONS SHOULD BE BASED ON THE PRIMARY CLINICAL RECORDS. [facility]. provides no warranty or guarantee of the accuracy or completeness of information in this document.
[2024-03-07 10:09] LABS: Bilirubin Urine NEGATIVE (NEGATIVE); Blood Urine SMALL (NEGATIVE); Clarity Urine SL CLOUDY (CLEAR); Color Urine LT. YELLOW (YELLOW); Glucose Urine UA NEGATIVE (NEGATIVE); Ketones Urine NEGATIVE (NEGATIVE); Leukocyte Esterase Urine TRACE (NEGATIVE); Nitrite Urine NEGATIVE (NEGATIVE); Protein Urine NEGATIVE (NEG/TRACE); Specific Gravity Urine 1.015 (1.005-1.025); Urobilinogen Urine 0.2 EU/dL (0.2-1.0)
[2024-03-07 10:10] LABS: Urine Microscopic Indicated YES
[2024-03-07 10:18] LABS: Bacteria Urine LARGE #/HPF (NONE SEEN); Cast Seen? NONE SEEN #/LPF (NONE SEEN); Crystals Seen? None Seen #/HPF (None Seen); Mucus Urine TRACE (NONE SEEN); Squamous Epithelial Cell Urine NONE SEEN #/LPF (NONE/RARE); Urine Culture Indicated YES
--- NOTE | 2024-03-07 10:25 | ED_ITS ---
HPI - Male Genitourinary General Chief complaint: Urogenital-Male Stated complaint: DIFFICULTY URINATING - CATH ISSUE Time Seen by Provider: 03/07/24 09:28 Source: patient Mode of arrival: walk-in Limitations: no limitations History of Present Illness HPI Narrative: The patient is coming to the ER with urine retention since the morning, he mentioned that he usually is self cathing and he did notice a few days ago that he noticed some blood coming when he was cathing himself The patient is complaining of discomfort due to urine retention Related Data Home Medications ?Medication ?Instructions ?Recorded ?Confirmed tamsulosin 0.4 mg capsule (Flomax) 0.4 mg PO DAILY 03/07/24 03/07/24 Previous Rx's ?Medication ?Instructions ?Recorded nitrofurantoin 100 mg PO BID 5 days #10 caps 03/07/24 monohydrate/macrocrystals 100 mg capsule (Macrobid) Allergies Allergy/AdvReac Type Severity Reaction Status Date / Time Penicillins Allergy Severe Rash Verified 03/07/24 09:20 Review of Systems ROS Status of ROS 10 or more systems reviewed and unremark able except as noted in history and below PFSH PFSH Social History Little interest or pleasure in doing things: not at all Feeling down, depressed, or hopeless: not at all Exam Narrative Exam Narrative: Nurses notes and vital signs reviewed and patient is not hypoxic. General: Well-appearing and in no apparent distress. Skin: Warm, dry, no pallor noted. No rash. Head: Normocephalic, atraumatic. Neck: Supple, non-tender. Eye: Pupils are equal, round and EOMI. No scleral icterus. Ears, Nose, Mouth, and Throat: TM are clear, no nasal mucosal hypertrophy. Oral mucosa is moist, no posterior oropharynx erythema, uvula is mid-line Cardiovascular: Regular Rate and Rhythm without murmur, gallop or rub. Respiratory: No accessory muscle use or respiratory distress. Lungs are clear to auscultation, no wheezing, rales or rhonchi Chest Wall: no tenderness Back: No midline thoracic or lumbar vertebral tenderness. No CVA tenderness Musculoskeletal: normal ROM, no calf or popliteal tenderness, no lower extremity edema/swelling GI: Abdomen is soft, non-distended. Normal bowel sounds. Suprapubic discomfort Neurological: A&O x4. No cranial nerve dysfunction observed. No truncal ataxia. Moves all extremities. Sensation intact. Psychiatric: Cooperative and interactive. Normal mood and affect. Constitutional Vital Signs, click to edit/add: Last Vital Signs Temp 98.6 F 03/07/24 09:15 Pulse 86 03/07/24 09:15 Resp 18 03/07/24 09:15 BP 162/89 H 03/07/24 09:15 Pulse Ox 99 03/07/24 09:15 O2 Del Method Room Air 03/07/24 09:15 Course Vital Signs Vital signs: Vital Signs Temperature 98.6 F 03/07/24 09:15 Pulse Rate 86 03/07/24 09:15 Respiratory Rate 18 03/07/24 09:15 Blood Pressure 162/89 H 03/07/24 09:15 Pulse Oximetry 99 03/07/24 09:15 Oxygen Delivery Method Room Air 03/07/24 09:15 Temperature 98.6 F 03/07/24 09:15 Pulse Rate 86 03/07/24 09:15 Respiratory Rate 18 03/07/24 09:15 Blood Pressure 162/89 H 03/07/24 09:15 Pulse Oximetry 99 03/07/24 09:15 Oxygen Delivery Method Room Air 03/07/24 09:15 MDM - Male Genitourinary MDM Narrative Medical decision making narrative: The patient had a catheter placed upon arrival due to discomfort and urine retention he had 800 cc of urine came after he had the catheter placed Urinalysis shows signs of possible infection with leukocyte Estrace white blood cells and bacteria with the fact that this urine sample was obtained by catheter the patient will be covered with Macrobid The patient already had a history of reaction to sulfa and he had a penicillin allergy and he did not want to take the antibiotic although I did explain to him that with his history of prefer to cover him with antibiotic continue follow-up with his urology or the culture come back Patient was referred to go follow-up with urology and he was discharged with a urinary catheter with leg bag The patient is to follow up with primary care physician in next 2-3 days or to return to the emergency department should any of the signs or symptoms worsen or new symptoms develop. The patient agrees with the following Diagnosis and Treatment plan and the patient will be discharged home. Lab Data Labs: Lab Results 03/07/24 Range/Units 09:47 Urine Color Lt. yellow (YELLOW) Urine Clarity Sl cloudy (CLEAR) Urine pH 6.0 (5.0-9.0) Ur Specific [place] 1.015 (1.005-1.025) Urine Protein Negative (NEG/TRACE) mg/dL Urine Glucose (UA) Negative (NEGATIVE) mg/dL Urine Ketones Negative (NEGATIVE) mg/dL Urine Occult Blood Small A (NEGATIVE) Urine Nitrite Negative (NEGATIVE) Urine Bilirubin Negative (NEGATIVE) Urine Urobilinogen 0.2 (0.2-1.0) EU/dL Ur Leukocyte Esterase Trace A (NEGATIVE) Urine RBC 5-10 A (0-2) #/HPF Urine WBC 10-20 A (NONE SEEN) #/HPF Ur Squamous Epith Cells None seen (NONE/RARE) #/LPF Urine Crystals None seen (None Seen) #/HPF Urine Bacteria Large A (NONE SEEN) #/HPF Urine Casts None seen (NONE SEEN) #/LPF Urine Mucus Trace A (NONE SEEN) Ur Culture Indicated? Yes Discharge Plan Discharge Chief Complaint: Urogenital-Male Clinical Impression: Acute urinary retention, Urinary tract infection Patient Disposition: Home, Self-Care Condition: Good Prescriptions / Home Meds: New nitrofurantoin monohyd/m-cryst [Macrobid] 100 mg capsule 100 mg PO BID 5 Days Qty: 10 0RF Rx Instructions: must administer with a meal/food No Action tamsulosin [Flomax] 0.4 mg capsule 0.4 mg PO DAILY Print Language: Swiss Instructions: [place] Catheter Placement and Care (ED) Referrals: Kelly Loco MD [Physician] - 1 week SUZY THAKUR [Primary Care Provider] - 1 week Discharge Date/Time: 03/07/24 10:42
== END 2024-03-07 10:42 | disposition home or self-care (01) ==
PROVIDERS: Emergency Provider Emergency Medicine; PCP Family Medicine
DX: R33.9 Retention of urine, unspecified (principal); N39.0 Urinary tract infection, site not specified
CPT/HCPCS: 51702; 81001; 87086; 87150; 87186; 99284

== ENCOUNTER 2024-06-11 16:19 | Emergency (ER) | payer MEDICARE, OTHER, SELFPAY ==
[2024-06-11 16:25] VITALS: BP 168/94; PULSE 96; TEMP 37; O2SAT 96; BMI 18.3
[2024-06-11 16:57] LABS: Bilirubin Urine NEGATIVE (NEGATIVE); Blood Urine SMALL (NEGATIVE); Clarity Urine CLEAR (CLEAR); Color Urine LT. YELLOW (YELLOW); Glucose Urine UA NEGATIVE (NEGATIVE); Ketones Urine NEGATIVE (NEGATIVE); Leukocyte Esterase Urine SMALL (NEGATIVE); Nitrite Urine POSITIVE (NEGATIVE); Protein Urine TRACE mg/dL (NEG/TRACE); Urobilinogen Urine 0.2 EU/dL (0.2-1.0)
--- NOTE | 2024-06-11 17:02 | ED_ITS ---
HPI HPI - General Adult General Chief complaint: Urogenital-Male Stated complaint: UNABLE TO CATH, UTI POSSIBLE Time Seen by Provider: 06/11/24 16:24 Mode of arrival: walk-in History of Present Illness HPI narrative: Patient presents to ED complaining of a possible urinary tract infection. Patient states he does perform self catheterization chronically. He said this morning he had some trouble passing the catheter and more pain than he normally has. He said he has had urinary infections before and it feels like he is coming down with another 1. Patient has had a UroLift procedure in the end of April and has been doing relatively well since then however today he had a difficult time passing his catheter. He was able to pass it more easily at lunchtime today but still felt like he had some pain. Upon arrival here he did his own self cath and was able to provide us a urine sample and still was able to pass the catheter but said there was some pain with it. Denies lower abdominal pain or back pain. No fevers no vomiting. No other complaints at this. Related Data Home Medications ?Medication ?Instructions ?Recorded ?Confirmed tamsulosin 0.4 mg capsule (Flomax) 0.4 mg PO DAILY 03/07/24 06/11/24 doxycycline hyclate 100 mg capsule 100 mg PO Q12H 06/11/24 06/11/24 Allergies Allergy/AdvReac Type Severity Reaction Status Date / Time Penicillins Allergy Severe Rash Verified 03/07/24 09:20 Opioid HPI Opioid Management Most Recent Opioid Data: No Data to Display Review of Systems ROS Status of ROS 10 or more systems reviewed and unremark able except as noted in history and below PFSH PFSH Social History Little interest or pleasure in doing things: not at all Feeling down, depressed, or hopeless: not at all Exam Narrative Exam Narrative: General: alert, no acute distress Cardiovascular: regular rate and rhythm, normal peripheral perfusion. Respiratory: Lungs CTA, respirations non labored. Extremities: no deformity, no trauma. Neurological: oriented x 4, LOC appropriate for age. Abdomen soft nontender nondistended Constitutional Vital Signs, click to edit/add: Last Vital Signs Temp 98.6 F 06/11/24 16:25 Pulse 96 H 06/11/24 16:25 Resp 18 06/11/24 16:25 BP 168/94 H 06/11/24 16:25 Pulse Ox 96 06/11/24 16:25 O2 Del Method Room Air 06/11/24 16:25 Course Vital Signs Vital signs: Vital Signs Temperature 98.6 F 06/11/24 16:25 Pulse Rate 96 H 06/11/24 16:25 Respiratory Rate 18 06/11/24 16:25 Blood Pressure 168/94 H 06/11/24 16:25 Pulse Oximetry 96 06/11/24 16:25 Oxygen Delivery Method Room Air 06/11/24 16:25 Temperature 98.6 F 06/11/24 16:25 Pulse Rate 96 H 06/11/24 16:25 Respiratory Rate 18 06/11/24 16:25 Blood Pressure 168/94 H 06/11/24 16:25 Pulse Oximetry 96 06/11/24 16:25 Oxygen Delivery Method Room Air 06/11/24 16:25 Medical Decision Making MDM Narrative Medical decision making narrative: Patient's urine shows nitrites and leukocytes consistent with UTI. His symptoms fit UTI. Patient states what he took before in the past worked well for his urinary infection. He could not remember the name of it but I called his [facility] and the pharmacist said he was on doxycycline. I refilled the doxycycline over the phone with the pharmacist. Patient is to go directly to the pharmacy and start his medication tonight. Return to ED if worsening symptoms. Follow-up with Dr. Delatorre, urology. Patient is comfortable with care plan for home. Differential Diagnosis Differential Diagnosis: UTI, urinary retention bladder outlet obstruction Medical Records Medical records reviewed: Yes I reviewed the patient's medical records Lab Data Lab results reviewed: Yes I reviewed the patient's lab results Labs: Lab Results 06/11/24 Range/Units 16:43 Urine Color Lt. yellow (YELLOW) Urine Clarity Clear (CLEAR) Urine pH 7.0 (5.0-9.0) Ur Specific [place] 1.020 (1.005-1.025) Urine Protein Trace (NEG/TRACE) mg/dL Urine Glucose (UA) Negative (NEGATIVE) mg/dL Urine Ketones Negative (NEGATIVE) mg/dL Urine Occult Blood Small A (NEGATIVE) Urine Nitrite Positive A (NEGATIVE) Urine Bilirubin Negative (NEGATIVE) Urine Urobilinogen 0.2 (0.2-1.0) EU/dL Ur Leukocyte Esterase Small A (NEGATIVE) Urine RBC 0-2 (0-2) #/HPF Urine WBC 20-50 A (NONE SEEN) #/HPF Ur Squamous Epith Cells Rare (NONE/RARE) #/LPF Urine Crystals None seen (None Seen) #/HPF Urine Bacteria Large A (NONE SEEN) #/HPF Urine Casts None seen (NONE SEEN) #/LPF Urine Mucus None seen (NONE SEEN) [place] [place] Dis[place] Chief Complaint: Urogenital-Male Clinical Impression: Urinary tract infection Patient Disposition: Home, Self-Care Time of Disposition Decision: 17:15 Condition: Good Mode of Transportation: Private Vehicle Prescriptions / Home Meds: No Action tamsulosin [Flomax] 0.4 mg capsule 0.4 mg PO DAILY doxycycline hyclate 100 mg capsule 100 mg PO Q12H Patient Comments: start Print Language: Camb[place]ian Instructions: Urinary Tract Infection in Men (ED) Referrals: Kelly Loco MD [Physician] - 1 week SUZY THAKUR [Primary Care Provider] - 1 week Discharge Date/Time: 06/11/24 17:30
[2024-06-11 17:05] LABS: Bacteria Urine LARGE #/HPF (NONE SEEN); Cast Seen? NONE SEEN #/LPF (NONE SEEN); Crystals Seen? None Seen #/HPF (None Seen); Mucus Urine NONE SEEN (NONE SEEN); RBC Urine 0-2 #/HPF (0-2); Squamous Epithelial Cell Urine RARE #/LPF (NONE/RARE); Urine Culture Indicated YES-FRMC; WBC Urine 20-50 #/HPF (NONE SEEN)
== END 2024-06-11 17:30 | disposition home or self-care (01) ==
PROVIDERS: Emergency Provider Emergency Medicine; PCP Family Medicine
DX: N39.0 Urinary tract infection, site not specified (principal); Z87.440 Personal history of urinary (tract) infections
CPT/HCPCS: 81001; 87086; 99284